=== PATIENT | male | born 1960 | race African-American/Black ===

== ENCOUNTER → 2016-06-15 | Outpatient (CLI) | payer OTHER ==
[~2016-06-15] MED LIST: ACETAMINOPHEN-1 EAC1 PO; ACIDOPHILUS1 EAC3 PO; ALDACTONE25 MG PO; ALEVE220 MG PO; AMOXICILLIN 50500 MG PO; ASPIR 8181 MG PO; ASPIRIN325 PO; ATORVASTATIN CA40 MG PO; BISACODYL SUPP10 MG RECTAL; CARAFATE 1 GM TA1 G1 PO; CARVEDILOL12.5 MG PO; CEFTIN500 MG PO; CELEBREX 200 M200 M1 PO; CELEXA20 MG PO; CEPACOL SORE T1 EAC7 PO; COLACE 100 MG100 MG PO; COLACE100 MG PO; COREG6.25 MG PO; CYCLOBENZAPRINE10 MG PO; DEX4 GLUCOSE4 GM PO; DUONEB 2.5-0.5 M3 ML INH; ENOXAPARIN40 MG/0.1 SUBQ; FERREX 150 PLU1 EAC1 PO; FERREX 150150 MG PO; FLOMAX0.4 MG PO; GABAPENTIN600 M1 PO; GLUCAGEN1 M2 IM; GLUCOSE GEL38 GM PO; HUMALOG100 UNIT/1 SUBQ; HYDROCODON-ACE1 EAC5 PO; HYDROCODONE-AP1 EAC6 PO; INDERAL 20 MG T20 M1 PO; JARDIANCE10 MG PO; KLOR-CON 1010 MEQ PO; LANTUS100 UNIT/M SUBQ; LASIX 20 MG TAB20 MG PO; LASIX 40 MG TAB40 M2 PO; LEVEMIR SUBQ; LEVEMIR100 UNIT/1 SUBQ; LISINOPRIL10 MG PO; LISINOPRIL2.5 MG PO; LOPRESSOR25 PO; LOTREL 10-40 M1 EACH PO; MELATONIN3 MG PO; MILK OF MA2400 MG/10 PO; MIRALAX17 GM PO; NAPROSYN500 MG PO; NEURONTIN 300300 M1 PO; NEURONTIN600 MG PO; NORCO 10-325 T1 EACH PO; NORCO 5-325 TA1 EACH PO; NORVASC10 MG; NOVOLOG100 UNIT/1 SUBQ; OXYCONTIN10 M1 PO; PACERONE 200 M200 M1 PO; PEPCID20 MG PO; PRILOSEC OTC20 MG PO; PRINIVIL10 MG PO; PRINIVIL20 MG PO; PROTONIX40 M1 PO; SENIOR TABS1 EACH PO; SLOW-MAG64 M1 PO; TYLENOL325 MG PO; VIAGRA100 MG PO; VITAMIN D1000 UNI1; VITAMIN D1000 UNI1 PO
--- NOTE | ~2016-06-15 | 2DMMODE ---
[facility] [place] [address] 2 D/M-MODE ECHOCARDIOGRAM Name: JOHN SHIELDS Room #: REG [facility]#: [id number] Admission: 06/15/16 Attend Phys: Chirag Frank Discharge: Date of : 56 Date of Service: 06/15/16 1313 Report #: [id number] THIS REPORT FOR: //name// Transthoracic Echocardiography Ordering physician: Chirag Cantu Referring physician: Chirag Cantu Online Marketer: Kay Muhammad Indications/History: Abbreviated echo for LV function. HX ISCM, CABG. BP: 119 / HR: 84bpm Height: 78in Weight: 229.5lb 84 Study data: Limited 2D, limited spectral Doppler, and color Doppler. Location: Echo laboratory. Routine. Image quality was adequate. The study was technically limited due to body habitus. The parasternal window was low. 2D measurements Normal Normal LVID ED 52.6mm 36-57 IVS ED 12mm 6-11 LVID ES 43.3mm 23-40 LVPW ED 12.2mm 6-11 LA volume index 16-28 AoRoot diam ED 21-37 LVOT diameter 18-23 Findings: Left ventricle: The cavity size was normal. Wall thickness was increased in a pattern of mild LVH. Systolic function was mildly to moderately reduced. The estimated ejection fraction was in the range of 40%. Right ventricle: The cavity size was normal. Systolic function was normal. Right atrium: The atrium was normal in size. Left atrium: The atrium was normal in size. Aortic valve: Poorly visualized. Mitral valve: Mildly calcified annulus. Mildly calcified leaflets . Doppler: There was no evidence for stenosis. Trivial regurgitation. [address] [address] 2 D/M-MODE ECHOCARDIOGRAM Name: JOHN SHIELDS Room #: REG M.R.#: [id number] Admission: 06/15/16 Attend Phys: Chirag Frank Discharge: Date of : 56 Date of Service: 06/15/16 1313 Report #: [id number] Tricuspid valve: Structurally normal valve. Doppler: There was no evidence for stenosis. Mild regurgitation. Regurgitant peak velocity: 250.5cm/s. Peak RV-RA gradient: 25mm Hg (S). Pulmonic valve: Structurally normal valve. Doppler: There was no evidence for stenosis. No regurgitation. Pericardium: There was no pericardial effusion. Pulmonary artery: Systolic pressure was estimated to be 30mm Hg. Systemic veins: Inferior vena cava: The vessel was normal in size; the respirophasic diameter changes were in the normal range (= 50%). Conclusions 1. Left ventricle: The cavity size was normal. Wall thickness was increased in a pattern of mild LVH. Systolic function was mildly to moderately reduced. The estimated ejection fraction was in the range of 40%. 2. Mitral valve: Mildly calcified annulus. Mildly calcified leaflets . Trivial regurgitation. 3. Tricuspid valve: Structurally normal valve. Mild regurgitation. 4. Pulmonary arteries: Systolic pressure was estimated to be 30mm Hg. <ELECTRONICALLY SIGNED> By: Chirag Cantu MD 06/15/16 1353 1313 1353 Chirag Cantu MD /liz
== END ==
LOC: CV 12:54
DX: I25.5 Ischemic cardiomyopathy (principal); Z95.1 Presence of aortocoronary bypass graft

== ENCOUNTER 2016-08-17 18:31 | Inpatient (IN) | payer OTHER ==
[~2016-08-17] VITALS: Ht 198.1 cm; Wt 90.4 kg
[2016-08-17] VITALS (10 sets, daily range): BP systolic 100–155; BP diastolic 53–127
--- NOTE | ~2016-08-17 | HC ---
[facility] [place] [address] CONSULTATION Name: JOHN SHIELDS Room #: 243-P ADM IN M.R.#: [id number] Admission: 08/17/16 Attend Phys: Buddy Garcia MD Discharge: Date of : 56 Report #: [id number] THIS REPORT FOR: //name// CC: LEXIE physician/PCP Marshall Raymond DATE OF SERVICE: 08/18/2016 HISTORY OF PRESENT ILLNESS: I have been asked to evaluate this 56-year-old male who is in the intensive care unit following admission to the Emergency Room for a large perirectal abscess on the left buttocks region. The patient also has a lengthy history of type 2 diabetes mellitus and is a known patient with diabetic ketoacidosis. He has reported by himself that he is noncompliant for his diabetes control. The left buttock abscess started as a pimple approximately 2 weeks ago according to the patient. It has progressed to become progressively larger involving the whole left buttocks to the base of the scrotum on the left. PAST MEDICAL HISTORY: Consistent with insulin-dependent diabetes, hypertension, lumbar disk problems, lengthy history of tobacco abuse, neuropathy of the lower extremities. PAST SURGICAL HISTORY: Coronary artery bypass grafting x 6 in 2015. Lumbar laminectomy in March 2016. MEDICATIONS: Lasix, insulin, carvedilol, lisinopril. Other medications, spironolactone, gabapentin, aspirin 81 mg daily, Lipitor 40 mg daily, melatonin. ALLERGIES: No known drug allergies. SOCIAL HISTORY: 40+ pack year history of cigarette smoking. REVIEW OF SYSTEMS: A 10-point review of systems is primarily related to the perirectal abscess with progressive pain, induration and swelling with spontaneous drainage from the area on the right side. This has demonstrated a spontaneous drainage from the left side. PHYSICAL EXAMINATION: GENERAL: The patient is in the intensive care unit, resting comfortably in bed, rolled to the right lateral decubitus position. He is alert, cooperative. LUNGS: Clear bilaterally. CARDIOVASCULAR: Regular rate and rhythm. [facility] [address] [place] [address] CONSULTATION Name: ALYSONJOHN ALYCIA Room #: 243-P ADM IN M.R.#: [id number] Admission: 08/17/16 Attend Phys: Buddy Garcia MD Discharge: Date of : 56 Report #: [id number] ABDOMEN: Soft, nontender. Perineal region demonstrates a left 9 position draining sinus tract with purulent drainage from the central portion, approximately 3-4 cm from the anal verge. The entire buttock superiorly as well as anteriorly toward the base of the scrotum is indurated with an at least 4 cm wide sinus tract, probably filled with purulent drainage. LABORATORY DATA: Remainder of the patient's laboratories were within normal limits. CT scan demonstrated the perirectal inflammatory changes. The patient's lactate was 2.3. White count is elevated. Remainder of his lab results were within normal limits. DIAGNOSTIC IMPRESSION: Large perirectal abscess, requires emergent incision and drainage with evacuation and packing today. Discussed the plan with the patient. He is in agreement to proceed. Thank you for allowing us to participate in his care. <ELECTRONICALLY SIGNED> By: Marshall Strange MD, FACS 08/19/16 1235 1519 Marshall Strange MD, FACS /nt
--- NOTE | ~2016-08-17 | H ---
[facility] [address] [address] HISTORY AND PHYSICAL Name: JOHN SHIELDS Room #: 315-P ADM IN M.R.#: [id number] Admission: 08/17/16 Attend Phys: Geovanna Latham Discharge: Date of : 56 Report #: [id number] THIS REPORT FOR: //name// CC: LEXIE physician/PCP Marshall Raymond DATE OF SERVICE: 08/17/2016 ATTENDING PHYSICIAN: Buddy Garcia M.D. CHIEF COMPLAINT: Generalized weakness and nausea and vomiting. HISTORY OF PRESENT ILLNESS: The patient is a 56-year-old -L[place] male with a history of diabetes. He came in with the above complaints. He was noted to be febrile on arrival. He says he was not aware he was having fevers at home. He feels that the weakness has been going on for about 2 weeks. He did have some associated nausea and vomiting. He says he has gotten so weak, he can barely stand up. He has been here before with DKA and noncompliance with his diabetic management. He reports that his blood sugars have been running high. He did notice some drainage from a sacral wound that started draining on its own about 3 days ago. He is very sleepy at this time, so I am not getting much information from him. He also reported some weight loss. He has not been having any diarrhea. He is denying any chest pain. He has not had any further nausea since arrival. He was noted to be septic and is currently being seen in ICU. PAST MEDICAL HISTORY: Diabetes type 2, DKA, coronary artery disease, hypertension, chronic back pain, peripheral neuropathy and COPD. PAST SURGICAL HISTORY: CABG x 6 vessels, lumbar laminectomy and ankle repair. ALLERGIES: None. HOME MEDICATIONS: Reviewed and per EMR. SOCIAL HISTORY: The patient is an ex-smoker, having quit 1 year ago after smoking for about 40 years. He lives alone. Denies any alcohol use. He is a . He reports that he has not been eating well since his in 2014, and he has been very depressed about this. FAMILY HISTORY: The patient is unable to provide any further information. REVIEW OF SYSTEMS: Unobtainable due to altered mental status. [address] [address] HISTORY AND PHYSICAL Name: JOHN SHIELDS ALYCIA Room #: [address] [place] [address] IN M.R.#: [id number] Admission: 08/17/16 Attend Phys: Geovanna Latham Discharge: Date of : 56 Report #: [id number] PHYSICAL EXAMINATION: GENERAL: The patient is a very lethargic male in no acute distress. VITAL SIGNS: Temperature is 38.2, heart rate 110, respirations 18, blood pressure is 119/85 and oxygen is 100% on room air. HEENT: PERRLA. Sclerae are nonicteric. Oral mucosa is pink and dry. NECK: Supple, no JVD noted. CARDIOVASCULAR: Normal S1 and S2. No murmurs, rubs or gallops. RESPIRATORY: Breath sounds are clear bilaterally. He is diminished in both bases. Breathing is nonlabored. ABDOMEN: Soft, nontender and nondistended with positive bowel sounds. VASCULAR: No edema noted. Pedal pulses are 2+. NEUROLOGIC: The patient is very lethargic. He is arousable by verbal and physical stimuli, but he opens his eyes briefly and answers questions with one-word response and then goes right back to sleep, and this had to be repeated multiple times during the whole assessment. He was able to follow a few simple commands and was able to hand squeeze and move his toes, which were moving equally. SKIN: He does have 2 buttock wounds that are open. The one on the right has some small amount of surrounding erythema with some small amount of purulent drainage. The one on the left has a moderate amount of purulent drainage, but the surrounding tissue is indurated and very tender, could not express any more pus from the wound itself manually. LABORATORY AND DIAGNOSTIC DATA: WBC is 28.1 with bands of 19%, hemoglobin 14.1 and platelets 406. Sodium 130, potassium is 4.2, BUN 51, creatinine 1.4, glucose is 350, anion gap is 12, lactate is 2.2. INR 1.1. LFTs are within normal limits. Troponins negative. Albumin is 2.1. Lipase is 35. ABG showed a pH of 7.48, pCO2 of 25.9, pO2 of 92 and bicarbonate of 18.9. UA showed 1+ ketones, negative leukocyte esterase and wbc's and 2+ glucose. CT of the abdomen and pelvic without contrast shows distal sigmoid colon and rectal davis demonstrate thickening and particularly the most distal rectum suggests some proctitis or inflammatory process. There is significant extraluminal and extraperitoneal gas seen within the perirectal soft tissue and perianal region extending into the proximal without organized abscess. There is probably some type of distal rectal bowel perforation. There is some distal pericolonic edema and stranding also seen along the distal sigmoid and rectal colon. There is some esophageal thickening suggesting esophagitis, and there is no intraperitoneal free air is seen. ASSESSMENT AND PLAN: 1. Sepsis: The patient has been admitted to ICU. He is on the sepsis protocol. We will continue with aggressive IV fluids and broad-spectrum antibiotics. Blood cultures have been obtained from the blood as well as from his wounds. This is likely from his left sacral wound. We will get a PICC line placed in the morning. [facility] [address] [place] [address] HISTORY AND PHYSICAL Name: JOHN SHIELDS Room #: 315-P ADM IN M.R.#: [id number] Admission: 08/17/16 Attend Phys: Geovanna Latham Discharge: Date of : 56 Report #: [id number] 2. Sacral wounds with possible abscess: Surgery is consulted and the patient is being kept n.p.o. He should also be seen by wound care. 3. Proctitis per CT, possibly related to these wounds versus a fistula formation. Surgery to see and continue antibiotics. 4. Diabetes type 2: This is uncontrolled. Check hemoglobin A1c. He is not in diabetic ketoacidosis. We will start insulin drip per sepsis protocol. 5. Altered mental status: This is due to toxic encephalopathy. We will continue to monitor as his infection is treated. He has no focal neurologic changes. 6. History of coronary artery disease with prior coronary artery bypass graft. The patient is able to deny any chest pain and troponin is negative. 7. Chronic obstructive pulmonary disease: This is stable and no signs of exacerbation. 8. Acute kidney injury: Last known creatinine was 1.0 in April, likely due to sepsis. We will continue with hydration and follow labs. 9. Deep venous thrombosis prophylaxis, place sequential compression devices. We will continue to follow the patient closely throughout the hospitalization and make changes based on clinical status. <ELECTRONICALLY SIGNED> By: OLIVER Miramontes 08/21/16 0658 0556 0752 OLIVER Miramontes /nt
--- NOTE | ~2016-08-17 | O ---
[facility] [place] [address] OPERATIVE REPORT Name: JOHN SHIELDS Room #: 243-P ADM IN M.R.#: [id number] Admission: 08/17/16 Attend Phys: Buddy Garcia MD Discharge: Date of : 56 Report #: [id number] THIS REPORT FOR: //name// CC: LEXIE physician/PCP Marshall Raymond DATE OF SERVICE: 08/18/2016 PREOPERATIVE DIAGNOSIS: Large perirectal abscess, left perirectal tissues from the 12-6 position. POSTOPERATIVE DIAGNOSIS: Large perirectal abscess, left perirectal tissues from the 12-6 position. OPERATIVE PROCEDURE: Incision and drainage of large perirectal abscess with irrigation and packing with iodoform gauze. SURGEON: Marshall Strange M.D. INDICATIONS: A 56-year-old male with reported 2-week history of progressive enlargement of an induration of the left buttock region. There has been a recent spontaneous drainage. The induration and mass has proceeded from the 12 position to the 6 position and the base of the scrotum. The induration is at least 3-6 cm in greatest dimension. In the central portion, approximately the 9 position, there is spontaneous drainage site with purulent exudate spontaneously coming from the abscess. OPERATIVE PROCEDURE: The patient had a thorough discussion of the procedure, benefits and risks. He gave informed consent to proceed. He was on antibiotics. He was brought to the operating room suite and had a satisfactory induction of general laryngeal mask anesthesia. He was then placed in the lithotomy position. Sterile paint with Betadine was performed, draping was completed, and an appropriate timeout was performed. Then, 0.5% plain Naropin was injected circumferentially lateral to the left buttock region. The spontaneous drainage site was at the 9 position by Goodsall's rule. Initially this was opened further, cultures were taken. Finger dissection was performed in an inferior manner toward the base of the scrotum where the indurated tract and purulent drainage was. A second counter incision was performed at the 7 position. This was thoroughly opened and evacuated and irrigated. A third incision was performed at approximately the 11 position to further delineate and free up the tract and purulent material in the subcutaneous tissue. Copious irrigation through all 3 tracts was performed. One inch iodoform gauze was then packed into all 3 sites, 2 separate packings were utilized. The one set of [facility] [address] [place] [address] OPERATIVE REPORT Name: JOHN SHIELDS Room #: 243-P [facility] IN ..#: [id number] Admission: 08/17/16 Attend Phys: Buddy Garcia MD Discharge: Date of : 56 Report #: [id number] packing was brought in from the 11 position and packed into the 9 position; the 7 position packing was independent and separate. ESTIMATED BLOOD LOSS: Less than 25 mL. The patient had sterile dressings applied and returned to the recovery room in stable and satisfactory condition. <ELECTRONICALLY SIGNED> By: Marshall Strange MD, FACS 08/19/16 1235 1523 1918 Marshall Strange MD, FACS /nt
--- NOTE | ~2016-08-17 | HC ---
[facility] [place] [address] CONSULTATION Name: JOHN SHIELDS Room #: 243- ADM IN M.R.#: [id number] Admission: 08/17/16 Attend Phys: Buddy Garcia MD Discharge: Date of : 56 Report #: [id number] THIS REPORT FOR: //name// CC: [facility] physician/PCP Marshall Sesay Doc Ldsabinakelley aMrkalessandra DATE OF SERVICE: 08/18/2016 INFECTIOUS DISEASE CONSULTATION ATTENDING PHYSICIAN: Buddy Garcia M.D. CONSULTING PHYSICIAN: Adan Mattson M.D. REASON FOR EVALUATION: Severe sepsis with necrotizing perineal infection, the patient with diabetes mellitus. HISTORY OF PRESENT ILLNESS: Chart reviewed, the patient examined. This is a 56-year-old male with long-standing diabetes, now insulin requiring, type 2, who noted a, what he describes as, pimple on his buttock and he popped it. This was roughly 2 weeks ago. Since that time, he has had increasing pain associated with it. Did have elevated blood sugars. Generally, he has progressed to the point where he has significant pain, severe weakness. It is unclear whether he has had fevers or chills. No significant pulmonary-related complaints at this point. Evaluation with CT abdomen and pelvis showed distal sigmoid colon and rectal wall thickening consistent with inflammatory process; significant extraluminal, extraperitoneal gas in the perirectal soft tissue and perineal region without a clear abscess. There was question of bowel perforation. He had been found to have an elevated lactic acid of 2.2. He was admitted, resuscitated. Overall, he feels better, although he has persistent elevation of lactic acid as well as elevation of procalcitonin. He did undergo culture, which is pending. Gram stain did show polymicrobial etiology, however. He was started on broad-spectrum therapy consisting of vancomycin as well as piperacillin and tazobactam. He is generally alert, in moderate distress. ALLERGIES: Listed as none. MEDICATIONS: Include vancomycin, famotidine, piperacillin, and tazobactam. Currently, he is not on pressors. He is on insulin. PAST MEDICAL HISTORY: Includes diabetes mellitus type 2, insulin requiring; hypertension; chronic back pain; he has known coronary artery disease and peripheral neuropathy. [address] [address] CONSULTATION Name: JOHN SHIELDS Room #: 243-P [facility] IN .R.#: [id number] Admission: 08/17/16 Attend Phys: Buddy Garcia MD Discharge: Date of : 56 Report #: [id number] SOCIAL HISTORY: No illicit drug use. Former smoker. No ethanol. FAMILY HISTORY: Noncontributory. REVIEW OF SYSTEMS: As above. PHYSICAL EXAMINATION: GENERAL: Appears somewhat chronically ill, undernourished. He is pleasant, appropriate, in mild to moderate distress. He is generally lucid. VITAL SIGNS: Temperature was recently 98.2, pulse 103, respirations 20, and blood pressure 143/82. SKIN: Warm, dry. No rashes. HEENT: Otherwise, unremarkable. NECK: Supple. LUNGS: Diminished; otherwise, clear breath sounds. HEART: Regular. ABDOMEN: Mildly distended and soft. There are no peritoneal signs. LABORATORY DATA: Gram stain showed polymicrobial etiology including gram-negative rods, gram-positive rods, and gram-positive cocci. Procalcitonin was elevated at 4.8. Lactic acid of 2.9. Electrolytes: Sodium 139, potassium 3.3, chloride 105, bicarbonate is 23 and BUN and creatinine 43 and 1.5. White count of 22.7, H and H 14.2 and 43.4, and platelets of 356,000. Electrolytes: ____. Albumin 1.6, total protein of 7.1. CT as noted above. ABGs: pH of 7.482, PCO2 of 25.9, PO2 of 92, was on room air. Chest x-ray, no acute process. ASSESSMENT AND PLAN: Perineal necrotizing infection perhaps as a result of distal colonic or rectal perforation with ____ abscess subsequently drained versus outside-in progression. We will await the results of the culture and that should help further clarify ____ surgery to evaluate and likely will need some surgical intervention. He appears to be ill, although not overtly toxic at this point, so only risk for related complications. We will add incentive spirometry and try to optimize his nutritional status. We will follow. <ELECTRONICALLY SIGNED> By: Lázaro Roach MD 08/18/16 1728 0713 0804 Lázaro Roach MD /nt
--- NOTE | ~2016-08-17 | EKG ---
[address] [address] ELECTROCARDIOGRAM REPORT Name: JOHN SHIELDS Room #: 243-P ADM IN M.R.#: [id number] Admission: 08/17/16 Attend Phys: Buddy Garcia MD Discharge: Date of : 56 Report #: [id number] THIS REPORT FOR: //name// [facility] ED Test Date: 2016-08-17 Test Time: 18:43:11 Pat Name: JOHN SHIELDS Department: Room: [facility] Gender: M Senior Operations Analyst: MZOOK : 1960 Requested By: Jani Alamo Order Number: [id number] MD: Ryland Higginbotham Measurements Intervals [place] Rate: 107 P: 75 MD: 147 QRS: 33 QRSD: 88 T: 223 QT: 331 QTc: 442 Interpretive Statements Sinus tachycardia Probable left atrial enlargement Nonspecific ST segment changes Compared to ECG 05/08/2016 04:11:31 Atrial flutter no longer present Electronically Signed On 08-18-2016 12:32:19 CDT by Ryland Higginbotham [email or web address] <ELECTRONICALLY SIGNED> By: Ryland Higginbotham MD 08/18/16 1232 1843 1843 Ryland Higginbotham MD /HENRIQUE
--- NOTE | ~2016-08-17 | HC ---
[facility] [place] [address] CONSULTATION Name: JOHN SHIELDS Room #: 315-P ADM IN M.R.#: [id number] Admission: 08/17/16 Attend Phys: Geovanna Latham Discharge: Date of : 56 Report #: [id number] THIS REPORT FOR: //name// CC: LEXIE physician/PCP Marshall Sesay Doc Ldsabinakelley Markalessandra DATE OF SERVICE: 08/19/2016 REASON FOR CONSULTATION: Status post incision and drainage of left perirectal abscess by Dr. Marshall Strange. HISTORY: The patient is a 56-year-old gentleman presenting himself to the Emergency Room at [facility] with leukocytosis and evidence of left-sided perirectal abscess. He was taken to the operating room yesterday by Dr. Marshall Strange, who performed incision and drainage of the left-sided perirectal abscess. Wound care was consulted for postoperative wound care. PAST MEDICAL HISTORY: 1. Chronic back pain. 2. Uncontrolled diabetes mellitus. 3. History of non-ST elevated myocardial infarction. 4. History of congestive heart failure. 5. History of pulmonary edema. 6. History of diabetic ketoacidosis. 7. History of acute kidney injury. PAST SURGICAL HISTORY: 1. Lumbosacral spondylosis with radiculopathy status post lumbar surgery. 2. History of coronary artery bypass grafting x 6. ALLERGIES: No known drug allergies. HOME MEDICATIONS: Include acetaminophen, hydrocodone, Pepcid, Humalog insulin, ondansetron. He has been placed on piperacillin and vancomycin. At home, he is also on aspirin, atorvastatin, Celexa, Dulcolax, Lasix, Neurontin, lisinopril, melatonin, Prilosec, MiraLax and Flomax. LABORATORY DATA: White blood cell count 20,800, hematocrit 35.3. PHYSICAL EXAMINATION: GENERAL: Shows a healthy appearing tall, elderly appearing 56-year-old -[place] gentleman. [address] [address] CONSULTATION Name: ALYSONJOHN ALYCIA Room #: 315[facility] IN M.R.#: [id number] Admission: 08/17/16 Attend Phys: Geovanna Latham Discharge: Date of : 56 Report #: [id number] VITAL SIGNS: Temperature 36.7, pulse 84, respirations 14, blood pressure 142/72. HEENT: Mucous membranes are moist. NECK: Supple. Breath sounds are decreased bilaterally, status post median sternotomy scar. EXTREMITIES: Normal. Examination of the patient's back shows a healed lumbar incision. RECTAL: Examination of the left perirectal area shows two linear incision and drainage sites on the left buttock to the left of the anus. Iodoform pack was removed. The wound appears relatively clean with a minimal amount of drainage. It appears that the abscess has been completely drained. Wound was repacked with half inch iodoform gauze. IMPRESSION: 1. Diabetes mellitus type 2. 2. Left-sided perirectal abscess with leukocytosis and sepsis. 3. Surgically drained left perirectal abscess, appears completely drained. PLAN: Check wound cultures. Continue IV antibiotics. Change wound packing daily with half inch iodoform gauze packing. Wound care team will help afterwards with care of the wound. By: [id number] Eben Wills MD /nt
[2016-08-17 19:16] LABS: HEMATOCRIT 42.8 % (42.0-52.0); HEMOGLOBIN 14.1 gm/dL (14.0-18.0); MCV 78.8 fL (80.0-100.0); PLATELET COUNT 406 thou/uL (150-400); RBC 5.43 mil/uL (4.50-6.00); RDW 15.9 % (10.5-14.5); WBC 28.1 thou/uL (4.0-11.0)
[2016-08-17 19:18] LABS: MANUAL DIFF YES
[2016-08-17 19:45] LABS: ABSOLUTE NEUTROPHILS 24.7 thou/uL (1.4-8.2); METAMYELOCYTES 1 %; TOTAL CELL COUNT 100
[2016-08-17 20:13] LABS: ABG SAMPLE TYPE ARTERIAL; STICK SITE R.RADIAL
[2016-08-17 20:14] LABS: BE(vivo) -2.8 mmol/L (-2 to +3); HCO3 18.9 mmol/L (22.0-26.0); LACTATE 2.32 mmol/L (0.5-2.0); O2(CT) 19.9 mL/dL (15.0-23.0); O2Hb 96.6 % (92.0-98.0); PCO2 25.9 mmHg (35.0-45.0); PO2 92 mmHg (80.0-100.0); pH 7.482 (7.360-7.450); tCO2 19.7 mmol/L (24.0-30.0)
[2016-08-17 20:16] LABS: FIO2 21 %
[2016-08-17 20:17] LABS: sO2 97.6 % (92.0-98.0)
[2016-08-17 20:17] LABS: URINE BILIRUBIN 1+ (Negative); URINE BLOOD TRACE (Negative); URINE COLOR YELLOW; URINE GLUCOSE-RANDOM* 2+ (Negative); URINE KETONES 1+ (Negative); URINE NITRITE NEGATIVE (Negative); URINE PROTEIN (DIPSTICK) 1+ (Negative); URINE SPECIFIC GRAVITY 1.015 (1.003-1.035); URINE UROBILINOGEN 0.2 E.U./dl (0.2-1.0)
[2016-08-17 20:18] LABS: ICTOTEST (BILI CONFIRMATORY) Positive (Negative)
[2016-08-17 20:27] LABS: HYALINE CASTS 0-3 Few /LPF (None Seen)
[2016-08-17 20:28] LABS: BACTERIA None Seen /HPF (None Seen); CRYSTALS None Seen /LPF (None Seen); SQUAMOUS 0-3 Few /LPF (0-3); URINE RBC None Seen /HPF (0-2); URINE WBC None Seen /HPF (0-5)
[2016-08-17 20:37] LABS: ANION GAP 12 mmol/L (7-16); BUN 51 mg/dL (7-18); CHLORIDE 97 mmol/L (98-107); CO2 21 mmol/L (21-32); CREATININE 1.4 mg/dL (0.6-1.3); GLUCOSE 350 mg/dL (70-99); POTASSIUM 4.2 mmol/L (3.5-5.1); SODIUM 130 mmol/L (136-145)
[2016-08-17 20:44] LABS: ALKALINE PHOSPHATASE 132 U/L (46-116); DIRECT BILIRUBIN 0.2 mg/dL (<0.1-0.3); SGOT 14 U/L (15-37); SGPT 7 U/L (30-65); TOTAL BILIRUBIN 0.6 mg/dL (<0.1-1.0); TOTAL PROTEIN 7.3 g/dL (6.4-8.2); TROPONIN-I < 0.04 ng/mL (<0.04-0.07)
[2016-08-17 20:54] LABS: APTT 33.2 Seconds (24.5-32.8); INR 1.1; PROTIME 11.8 Seconds (9.3-11.4)
[2016-08-17 21:03] LABS: ALBUMIN 2.1 g/dL (3.4-5.0)
[2016-08-17] MEDS ORDERED: ALDACTONE25 MG PO (21:29)
[2016-08-17] MEDS ORDERED: NOVOLOG100 UNIT/1 SUBQ (21:29)
[2016-08-17] MEDS ORDERED: LANTUS SUBQ (21:29)
[2016-08-17] MEDS ORDERED: LISINOPRIL10 MG PO (21:29)
[2016-08-17] MEDS ORDERED: PACERONE 200 M200 M1 PO (21:30)
[2016-08-17] MEDS ORDERED: LISINOPRIL30 MG PO (21:30)
[2016-08-17 23:55] LABS: CALCIUM 8.6 mg/dL (8.5-10.1); CREATININE 1.3 mg/dL (0.6-1.3); POTASSIUM 4.2 mmol/L (3.5-5.1)
[2016-08-18] VITALS (69 sets, daily range): BP systolic 96–177; BP diastolic 42–100
[2016-08-18 00:03] LABS: APTT 35.6 Seconds (24.5-32.8); FIBRINOGEN 516.4 mg/dL (210-360); INR 1.2; PROTIME 12.1 Seconds (9.3-11.4)
[2016-08-18 02:00] LABS: HEMATOCRIT 43.4 % (42.0-52.0); HEMOGLOBIN 14.2 gm/dL (14.0-18.0); MCH 26.2 pg (26.0-34.0); MCHC 32.7 g/dL (28.0-37.0); PLATELET COUNT 356 thou/uL (150-400); RBC 5.43 mil/uL (4.50-6.00); RDW 15.7 % (10.5-14.5); WBC 22.7 thou/uL (4.0-11.0)
[2016-08-18 02:04] LABS: MANUAL DIFF YES
[2016-08-18 02:16] LABS: ALBUMIN 1.6 g/dL (3.4-5.0); CALCIUM 8.8 mg/dL (8.5-10.1); CREATININE 1.4 mg/dL (0.6-1.3); POTASSIUM 3.5 mmol/L (3.5-5.1); TOTAL BILIRUBIN 0.6 mg/dL (<0.1-1.0); TOTAL PROTEIN 7.1 g/dL (6.4-8.2)
[2016-08-18 02:38] LABS: ABSOLUTE NEUTROPHILS 19.5 thou/uL (1.4-8.2); BURR CELLS 2+; TOTAL CELL COUNT 100; TOXIC GRANULATION 2+
[2016-08-18 02:39] LABS: ANISOCYTOSIS 1+; POLYCHROMASIA 1+
[2016-08-18 05:27] LABS: CALCIUM 8.6 mg/dL (8.5-10.1); CREATININE 1.5 mg/dL (0.6-1.3); POTASSIUM 3.3 mmol/L (3.5-5.1)
[2016-08-18 05:33] LABS: INR 1.1; PROTIME 11.9 Seconds (9.3-11.4)
[2016-08-19] VITALS (27 sets, daily range): BP systolic 93–147; BP diastolic 48–87
[2016-08-19 05:07] LABS: ABSOLUTE NEUTROPHILS 18.3 thou/uL (1.4-8.2); BASOPHILS 0.2 % (0.0-2.0); EOSINOPHILS 0.4 % (0.0-3.0); HEMATOCRIT 35.3 % (42.0-52.0); LYMPHOCYTES 3.9 % (24.0-44.0); MCH 25.9 pg (26.0-34.0); MCHC 32.8 g/dL (28.0-37.0); MCV 78.9 fL (80.0-100.0); MONOCYTES 7.7 % (1.0-8.0); PLATELET COUNT 323 thou/uL (150-400); POLYS 87.8 % (36.0-66.0); RBC 4.47 mil/uL (4.50-6.00); RDW 15.9 % (10.5-14.5); WBC 20.8 thou/uL (4.0-11.0)
[2016-08-19 05:11] LABS: HEMOGLOBIN 11.67 gm/dL (14.0-18.0)
[2016-08-19 05:12] LABS: MANUAL DIFF NO
[2016-08-19 05:20] LABS: CREATININE 1.3 mg/dL (0.6-1.3); POTASSIUM 3.5 mmol/L (3.5-5.1)
[2016-08-20 04:00] VITALS: BP 126/67
[2016-08-20 07:37] VITALS: BP 114/58
[2016-08-20] MEDS ORDERED: ZOSYN 3.3753.375 GM IV (10:11)
[2016-08-20] MEDS ORDERED: HUMALOG100 UNIT/1 SUBQ (10:12)
[2016-08-20 14:48] VITALS: BP 121/61
[2016-08-20 19:44] VITALS: BP 141/66
[2016-08-21 03:58] VITALS: BP 147/73
[2016-08-21 08:46] VITALS: BP 161/60
[2016-08-21 08:53] VITALS: BP 161/60
[2016-08-21] MEDS ORDERED: LORTAB 7.5-3251 EACH PO (09:18)
[2016-08-21] MEDS ORDERED: UNASYN 3 GM VIAL3 G1 IV (09:18)
== END 2016-08-21 13:31 | DRG 853 ==
LOC: ER 18:31 → EROBS 20:53 → ICU 20:53 → 3N 20:53 → ICU 21:59 → 3N 08-19 15:51
PROVIDERS: Nurse Practitioner; Nurse Practitioner Acute Care; Surgery
PROC: 02HV33Z Insertion of Infusion Device into Superior Vena Cava, Percutaneous Approach (ICD-10-PCS; principal; 2016-08-18)
PROC: 0D9P0ZX Drainage of Rectum, Open Approach, Diagnostic (ICD-10-PCS; principal; 2016-08-18)
DX: A41.51 Sepsis due to Escherichia coli [E. coli] (principal); G92 Toxic encephalopathy; E43 Unspecified severe protein-calorie malnutrition; K61.1 Rectal abscess; N17.9 Acute kidney failure, unspecified; E11.65 Type 2 diabetes mellitus with hyperglycemia; G89.18 Other acute postprocedural pain; I25.10 Atherosclerotic heart disease of native coronary artery without angina pectoris; K62.89 Other specified diseases of anus and rectum; E11.22 Type 2 diabetes mellitus with diabetic chronic kidney disease; N18.9 Chronic kidney disease, unspecified; E11.40 Type 2 diabetes mellitus with diabetic neuropathy, unspecified; J44.9 Chronic obstructive pulmonary disease, unspecified; I50.9 Heart failure, unspecified; I25.2 Old myocardial infarction; Z87.891 Personal history of nicotine dependence; Z79.4 Long term (current) use of insulin; Z79.82 Long term (current) use of aspirin; Z79.899 Other long term (current) drug therapy; Z95.1 Presence of aortocoronary bypass graft; Z68.23 Body mass index [BMI] 23.0-23.9, adult
CPT/HCPCS: 10078; 10096; 27000; 50010; 50101; 50386; 62110; 62900; 70005

== ENCOUNTER → 2016-09-05 | Outpatient (CLI) | payer OTHER ==
[~2016-09-05] MED LIST changes: +LANTUS SUBQ; +LISINOPRIL30 MG PO; +LORTAB 7.5-3251 EACH PO; +UNASYN 3 GM VIAL3 G1 IV; +ZOSYN 3.3753.375 GM IV
== END ==
LOC: RAD 09-04 14:58
DX: K61.1 Rectal abscess (principal); L02.215 Cutaneous abscess of perineum

== ENCOUNTER 2016-09-06 10:52 | Inpatient (IN) | payer OTHER ==
[~2016-09-06] VITALS: Ht 198.1 cm; Wt 108.9 kg
--- NOTE | ~2016-09-06 | HC ---
[facility] [place] [address] CONSULTATION Name: JOHN SHIELDS Room #: 457-P ADM IN M.R.#: [id number] Admission: 09/06/16 Attend Phys: Geovanna Latham Discharge: Date of : 56 Report #: [id number] THIS REPORT FOR: //name// CC: LEXIE physician/PCP Geovanna Latham DATE OF SERVICE: 09/09/2016 CONSULTATION: Infectious diseases. HISTORY OF PRESENT ILLNESS: The patient is a 56-year-old black gentleman admitted from his halfway, September 06, complaining of 3-day history of increased shortness of breath. This was exacerbated with lying down and improved when sitting up. He had his saturation measures in the 80s on room air. The patient noted that he had been gaining weight about 30 pounds in 3 weeks and was having swelling. The patient was admitted with exacerbation of heart failure. Blood cultures were obtained. Infectious disease consultation was requested when 1 out of 2 blood cultures grew a gram-negative organism. The patient is approximately 3 weeks status post incision and drainage of a horseshoe abscess in the rectal area. The patient was admitted on August 17 through August 20 with rectal pain and E. coli sepsis. The patient was in acute rehab after this procedure. PAST MEDICAL HISTORY: Past history is significant for diabetes, hypertension, myocardial infarction, coronary artery disease, low back pain and COPD. PAST SURGICAL HISTORY: Includes laminectomies, coronary artery bypass grafting and ankle surgery. FAMILY HISTORY: Noncontributory. SOCIAL HISTORY: The patient had been for 2 years. He admits he has not been taking such good care of himself since his . 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 He did smoke cigarettes, but quit about one year ago. He denies use of alcohol or drugs. He currently lives by himself and in plans to go home after completing rehab. REVIEW OF SYSTEMS: GENERAL: The patient has not been complaining of fevers, chills or sweats. He has been having weakness and malaise. His dyspnea is significantly improved with 3 days in the hospital. He is not complaining of any headache, sinus congestion, sore throat or trouble swallowing. No cough, chest pain or angina. No syncope or arrhythmia. No pleurisy. The patient denies nausea, vomiting, diarrhea or constipation. He is having regular bowel movements. They are not particularly painful. He still has some local tenderness in the area of his [facility] [address] [place] [address] CONSULTATION Name: JOHN SHIELDS Room #: 457-P [facility] IN ..#: [id number] Admission: 09/06/16 Attend Phys: Geovanna Latham Discharge: Date of : 56 Report #: [id number] recent surgery. GENITOURINARY: No complaints. EXTREMITIES: No complaints. PHYSICAL EXAMINATION: GENERAL: On examination, the patient appears his stated age. Alert, oriented, comfortable, not in any distress. VITAL SIGNS: Normal. The patient is afebrile. ENT: Unremarkable. The patient is awake, alert, and able to give a cogent history. HEART: Heart sounds normal. Regular rate and rhythm. No murmur. LUNGS: Clear. ABDOMEN: Belly obese, soft, not tender. RECTAL: The perirectal area was examined. There is an open surgical wound at about 9 o'clock. It measures about 0.5 x 2 cm. I did not probe the depth. The granulation tissue visible to observation appears clean and beefy red. There is a small wound, which I think was the counter drain, at about 7 o' clock. There is minimal serous drainage. There is mild induration. The patient is dark colored, so I really could not appreciate erythema. The area was mildly tender to palpitation. EXTREMITIES: The distal extremities were unremarkable. LABORATORY DATA: White count is 7.3, hemoglobin 9.8 and platelet 458,000. Electrolytes, BUN and creatinine were normal. The blood culture showed Klebsiella sensitive to all antibiotics except for ampicillin in 1 out of 2 of the initial blood cultures. An echocardiogram showed left ventricular hypertrophy with an ejection fraction of 40%. CT angiogram was negative for clot, did suggest fluid overload. The chest x-ray had atelectasis or infiltrates in both bases. IMPRESSION: Klebsiella bacteremia in a patient 3 weeks status post rectal abscess surgery. Based on the culture, I think we can safely change from Zosyn to Rocephin. This is a more focused antibiotic, less expensive and only required once a day administration. I will ask Dr. Strange, the surgeon, to come back in re-examine the patient. I suspect that the perirectal area is probably the source of the gram-negative bacteremia. We, unfortunately, did not get a urine on admission, but the patient had no urinary symptoms. I did request a swab of the wound to see if this also has the Klebsiella or the patient has been on broad spectrum antibiotics with Zosyn and meropenem for the last 3 days. At some point, it may be worthwhile to have marine engineer evaluate the patient regarding his episode of heart failure. For now, we will continue the patient on Rocephin and await Dr. Strange's reevaluation of the surgical wound. Dr. Mattson will return tomorrow for [facility] [address] [place] [address] CONSULTATION Name: JOHN SHIELDS Room #: 457-P ADM IN M.R.#: [id number] Admission: 09/06/16 Attend Phys: Geovanna Latham Discharge: Date of : 56 Report #: [id number] infectious disease followup. I appreciate the opportunity to offer input in the care of the patient. Thank you for requesting infectious disease input. By: [id number] David Hoover MD /rmoero
--- NOTE | ~2016-09-06 | H ---
[facility] [place] [address] HISTORY AND PHYSICAL Name: JOHN SHIELDS Room #: 457-P ADM IN M.R.#: [id number] Admission: 09/06/16 Attend Phys: Geovanna Latham Discharge: Date of : 56 Report #: [id number] THIS REPORT FOR: //name// CC: LEXIE physician/PCP Geovanna Latham DATE OF SERVICE: 09/07/2016 This is a wound care history and physical on an established patient but new hospital visit. DATE OF SERVICE: 09/07/2016. PERSONAL PHYSICIAN: CHIEF COMPLAINT: Gluteal wounds. HISTORY OF PRESENT ILLNESS: This is a 56-year-old black male who is currently admitted for shortness of breath, and workup is undergoing. We will follow the patient in the past for gluteal abscesses that has been drained. The patient had been using morphine and Silvadene at home. The patient states the abscesses actually, he feels, have been doing fairly well. The patient states that it was not until recently he started having this shortness of breath. We have been asked to assist in the care of the wound while he is here. PAST MEDICAL HISTORY: Type 2 diabetes, coronary artery disease, hypertension, peripheral neuropathy, COPD, coronary artery bypass grafting. CURRENT MEDICATIONS: Multiple inpatient medication list. DRUG ALLERGIES: None. SOCIAL HISTORY: The patient has a history of smoking, quit approximately one year ago. Currently, he is in rehab at [facility]. Denies alcohol use. FAMILY HISTORY: Not pertinent to current medical condition. REVIEW OF SYSTEMS: CONSTITUTIONAL: The patient denies fevers or chills. EYES: No complaints. ENT: No complaints. CARDIAC: The patient denies chest pain, palpitations, peripheral edema. RESPIRATORY: The patient has shortness of breath, but denies actual wheezes, but does have associated cough which is slight. GASTROINTESTINAL: No nausea, vomiting, diarrhea. GENITOURINARY: The patient denies urgency or frequency. [facility] [address] [place] [address] HISTORY AND PHYSICAL Name: JOHN SHIELDS Room #: [address] [place] [address] IN ..#: [id number] Admission: 09/06/16 Attend Phys: Geovanna Latham Discharge: Date of : 56 Report #: [id number] MUSCULOSKELETAL: No complaints. SKIN: There are bilateral gluteal perianal wounds. PHYSICAL EXAMINATION: VITAL SIGNS: Stable. The patient is afebrile. GENERAL: This is an alert and oriented x 3, pleasant black male who is in no acute distress. HEENT: Normocephalic, atraumatic. Mucous membranes are moist. Pupils are round. Sclerae are white. LUNGS: Nonlabored respirations. HEART: ABDOMEN: Soft, nontender. SKIN: Evaluation of the gluteal region reveals 3 discrete wounds on the left perianal and gluteal regions. The most inferior one has a depth of approximately 10 cm. Otherwise, clean and granulating without signs of induration, fluctuance or abscess or cellulitis. EXTREMITIES: The patient moves all extremities without difficulty. NEUROLOGIC: Cranial nerves 2-12 grossly intact. Motor and sensory are grossly intact. LABORATORY VALUES: White count 6.5, hemoglobin 8.9. Albumin is markedly low at 1.9. IMPRESSION: 1. Multiple perianal/gluteal wounds, status post incision and drainage, overall stable. 2. Acute dyspnea. Workup undergoing. 3. Severe protein-calorie malnutrition. 4. Diabetes mellitus. PLAN: At this time, we will pack the most inferior wound with morphine, Silvadene, packing gauze twice daily. Otherwise, put morphine, Silvadene cream over the 2 other superficial wounds. We will make sure we maximize the patient's oral protein supplementation for healing, and the patient's workup for his dyspnea is undergoing. I appreciate the ability to consult. By: [id number] Donnell Flores MD /nt
--- NOTE | ~2016-09-06 | EKG ---
[place] [address] [facility] [place] [address] ELECTROCARDIOGRAM REPORT Name: JOHN SHIELDS Room #: 457-P ADM IN M.R.#: [id number] Admission: 09/06/16 Attend Phys: Geovanna Latham Discharge: Date of : 56 Report #: [id number] THIS REPORT FOR: //name// [facility] ED Test Date: 2016-09-06 Test Time: 11:30:33 Pat Name: JOHN SHIELDS Department: Room: [facility] Gender: M Well Puller: Sigifredo BLOUNT : 1960 Requested By: Vaibhav Davenport Order Number: [id number] MD: Vic Parmar Measurements Intervals [place] Rate: 95 P: 54 GA: 163 QRS: 14 QRSD: 84 T: 126 QT: 370 QTc: 465 Interpretive Statements Sinus rhythm Left atrial enlargement Low voltage, extremity leads Nonspecific T abnormalities Compared to ECG 08/17/2016 18:43:11 Sinus tachycardia no longer present Electronically Signed On 09-07-2016 8:36:43 CDT by Vic Parmar [email or web address] <ELECTRONICALLY SIGNED> By: Vic Parmar MD, [facility] 09/07/16 0836 1130 1130 Vic Parmar MD, [facility] /EPI
[2016-09-06 10:52] VITALS: BP 153/79
[2016-09-06 11:21] LABS: ABSOLUTE NEUTROPHILS 3.7 thou/uL (1.4-8.2); BASOPHILS 2.1 % (0.0-2.0); HEMATOCRIT 27.5 % (42.0-52.0); HEMOGLOBIN 8.9 gm/dL (14.0-18.0); LYMPHOCYTES 22.5 % (24.0-44.0); MCH 26.4 pg (26.0-34.0); MCHC 32.4 g/dL (28.0-37.0); MCV 81.5 fL (80.0-100.0); MONOCYTES 11.7 % (1.0-8.0); PLATELET COUNT 403 thou/uL (150-400); POLYS 56.7 % (36.0-66.0); RBC 3.37 mil/uL (4.50-6.00); RDW 17.4 % (10.5-14.5); WBC 6.5 thou/uL (4.0-11.0)
[2016-09-06 11:23] LABS: ABG SAMPLE TYPE ARTERIAL; BE(vivo) 2.8 mmol/L (-2 to +3); HCO3 26.2 mmol/L (22.0-26.0); LACTATE 1.34 mmol/L (0.5-2.0); O2(CT) 13.5 mL/dL (15.0-23.0); O2Hb 88.8 % (92.0-98.0); PCO2 35.6 mmHg (35.0-45.0); pH 7.484 (7.360-7.450); tCO2 27.2 mmol/L (24.0-30.0)
[2016-09-06 11:24] LABS: PO2 55.1 mmHg (80.0-100.0); STICK SITE L.BRACHIAL
[2016-09-06 11:32] LABS: ANION GAP 6 mmol/L (7-16); BUN 13 mg/dL (7-18); CALCIUM 6.3 mg/dL (8.5-10.1); CHLORIDE 111 mmol/L (98-107); CO2 24 mmol/L (21-32); CREATININE 0.6 mg/dL (0.7-1.3); GLUCOSE 99 mg/dL (74-106); MANUAL DIFF NO; POTASSIUM 3.4 mmol/L (3.5-5.1); SODIUM 141 mmol/L (136-145)
[2016-09-06 11:44] LABS: ALBUMIN 1.4 g/dL (3.4-5.0); ALKALINE PHOSPHATASE 108 U/L (46-116); NT-PRO BRAIN NAT PEPTIDE 3874 pg/mL (<300); SGOT 23 U/L (15-37); SGPT 19 U/L (30-65); TOTAL BILIRUBIN 0.2 mg/dL (<0.1-1.0); TOTAL PROTEIN 5.3 g/dL (6.4-8.2); TROPONIN-I < 0.04 ng/mL (<0.04-0.07)
[2016-09-06 12:34] LABS: INR 1.1; PROTIME 11.8 Seconds (9.3-11.4)
[2016-09-06 14:06] VITALS: BP 153/82
[2016-09-06 14:30] VITALS: BP 151/100
[2016-09-06 20:00] VITALS: BP 133/69
[2016-09-06 23:34] VITALS: BP 103/57
[2016-09-07 04:00] VITALS: BP 123/69
[2016-09-07 06:04] LABS: CALCIUM 7.9 mg/dL (8.5-10.1); MAGNESIUM 1.7 mg/dL (1.8-2.4); POTASSIUM 3.9 mmol/L (3.5-5.1)
[2016-09-07 08:00] VITALS: BP 153/76
[2016-09-07 11:54] VITALS: BP 136/70
[2016-09-07 15:11] VITALS: BP 133/76
[2016-09-07 19:29] VITALS: BP 160/79
[2016-09-08 03:44] VITALS: BP 141/84
[2016-09-08 06:01] LABS: ALBUMIN 1.8 g/dL (3.4-5.0); CALCIUM 7.9 mg/dL (8.5-10.1); CREATININE 0.9 mg/dL (0.7-1.3); PHOSPHORUS 3.5 mg/dL (2.5-4.9); POTASSIUM 3.9 mmol/L (3.5-5.1)
[2016-09-08 08:00] VITALS: BP 180/86
[2016-09-08 12:20] VITALS: BP 143/76
[2016-09-08 16:50] VITALS: BP 174/104
[2016-09-08 18:53] VITALS: BP 151/72
[2016-09-09 03:35] VITALS: BP 158/101
[2016-09-09 04:21] VITALS: BP 160/91
[2016-09-09 05:40] LABS: HEMATOCRIT 30.6 % (42.0-52.0); HEMOGLOBIN 9.8 gm/dL (14.0-18.0); MCH 25.9 pg (26.0-34.0); MCV 80.8 fL (80.0-100.0); RBC 3.79 mil/uL (4.50-6.00); RDW 17.3 % (10.5-14.5); WBC 7.3 thou/uL (4.0-11.0)
[2016-09-09 05:58] LABS: ALBUMIN 1.9 g/dL (3.4-5.0); CALCIUM 8.2 mg/dL (8.5-10.1); CREATININE 0.9 mg/dL (0.7-1.3); PHOSPHORUS 3.1 mg/dL (2.5-4.9); POTASSIUM 3.9 mmol/L (3.5-5.1)
[2016-09-09 08:30] VITALS: BP 173/98
[2016-09-09 13:15] VITALS: BP 161/90
[2016-09-09 15:55] VITALS: BP 176/95
[2016-09-09 19:06] VITALS: BP 154/71
[2016-09-10 03:40] VITALS: BP 150/94
[2016-09-10 05:56] LABS: HEMATOCRIT 29.4 % (42.0-52.0); MCH 27.4 pg (26.0-34.0); MCHC 34.1 g/dL (28.0-37.0); MCV 80.2 fL (80.0-100.0); PLATELET COUNT 431 thou/uL (150-400); RBC 3.67 mil/uL (4.50-6.00); RDW 16.9 % (10.5-14.5); WBC 6.1 thou/uL (4.0-11.0)
[2016-09-10 06:11] LABS: ALBUMIN 1.9 g/dL (3.4-5.0); CALCIUM 8.1 mg/dL (8.5-10.1); CREATININE 0.9 mg/dL (0.7-1.3); PHOSPHORUS 2.9 mg/dL (2.5-4.9); POTASSIUM 3.6 mmol/L (3.5-5.1)
[2016-09-10 06:29] LABS: MANUAL DIFF YES
[2016-09-10 07:03] VITALS: BP 139/85
[2016-09-10 08:03] LABS: ABSOLUTE NEUTROPHILS 3.8 thou/uL (1.4-8.2); ANISOCYTOSIS 1+; ATYPICAL LYMPHS 1 %; TOTAL CELL COUNT 100
[2016-09-10 08:04] LABS: MICROCYTES 1+; OVALOCYTES FEW
[2016-09-10 12:27] VITALS: BP 147/90
[2016-09-10 15:23] VITALS: BP 144/86
[2016-09-10 19:00] VITALS: BP 134/78
[2016-09-11 02:19] LABS: URINE BILIRUBIN NEGATIVE (Negative); URINE BLOOD TRACE (Negative); URINE COLOR YELLOW; URINE GLUCOSE-RANDOM* 3+ (Negative); URINE KETONES NEGATIVE (Negative); URINE LEUKOCYTES-REFLEX NEGATIVE (Negative); URINE PROTEIN (DIPSTICK) NEGATIVE (Negative); URINE UROBILINOGEN 0.2 E.U./dl (0.2-1.0)
[2016-09-11 03:11] VITALS: BP 132/73
[2016-09-11 07:32] VITALS: BP 145/91
[2016-09-11] MEDS ORDERED: LANTUS100 UNIT/M SUBQ (09:29)
[2016-09-11] MEDS ORDERED: LEVAQUIN 500 M500 M2 PO (09:30)
[2016-09-11] MEDS ORDERED: HYDROCODONE-APA1 TA1 PO (09:31)
[2016-09-11 10:27] VITALS: BP 145/91
[2016-09-11 12:42] VITALS: BP 145/91
== END 2016-09-11 16:58 | disposition home health service (06) | DRG 291 ==
LOC: ER 10:52 → 4W 13:23 → EROBS 13:23 → 4W 16:04
PROVIDERS: Hospitalist; Nurse Practitioner; Physician Assistant; Specialist
DX: I11.0 Hypertensive heart disease with heart failure (principal); J15.6 Pneumonia due to other Gram-negative bacteria; J96.01 Acute respiratory failure with hypoxia; E43 Unspecified severe protein-calorie malnutrition; J44.0 Chronic obstructive pulmonary disease with (acute) lower respiratory infection; R78.81 Bacteremia; K61.1 Rectal abscess; I50.23 Acute on chronic systolic (congestive) heart failure; I42.9 Cardiomyopathy, unspecified; E11.40 Type 2 diabetes mellitus with diabetic neuropathy, unspecified; I25.10 Atherosclerotic heart disease of native coronary artery without angina pectoris; E87.6 Hypokalemia; F32.9 Major depressive disorder, single episode, unspecified; G89.29 Other chronic pain; M54.5 Low back pain; D64.9 Anemia, unspecified; E66.9 Obesity, unspecified; B96.1 Klebsiella pneumoniae [K. pneumoniae] as the cause of diseases classified elsewhere; Z95.1 Presence of aortocoronary bypass graft; Z87.891 Personal history of nicotine dependence; Z68.27 Body mass index [BMI] 27.0-27.9, adult; I25.2 Old myocardial infarction; Z79.4 Long term (current) use of insulin; Z79.899 Other long term (current) drug therapy
CPT/HCPCS: 10045

== ENCOUNTER 2017-09-17 23:55 | Inpatient (IN) | payer OTHER ==
[~2017-09-17] VITALS: Ht 198.1 cm; Wt 99.2 kg
--- NOTE | ~2017-09-17 | EKG ---
[place] [address] [employer] [facility] [place] [address] ELECTROCARDIOGRAM REPORT Name: ALYSONJOHN ALYCIA Room #: 364-P ADM IN M.R.#: [id number] Admission: 09/18/17 Attend Phys: Venancio Alfaro MD Discharge: Date of : 56 Report #: [id number] THIS REPORT FOR: //name// [facility] ED Test Date: 2017-09-18 Test Time: 00:10:42 Pat Name: JOHN SHIELDS Department: Room: 364 Gender: M [employer]razier: VERONICA : 1960 Requested By: Real Price Order Number: [id number] MD: Vic Parmar Measurements Intervals [place] Rate: 69 P: 69 ID: [id number] QRS: 20 QRSD: 100 T: 194 QT: 425 QTc: 456 Interpretive Statements Sinus rhythm Probable left atrial enlargement ST and T wave abnormality, consider lateral ischemia Compared to ECG 09/06/2016 11:30:33 Lateral T wave abnormality is more pronounced Electronically Signed On 09-18-2017 8:09:51 CDT by Vic Parmar [email or web address] <ELECTRONICALLY SIGNED> By: Vic Parmar MD, [facility] 09/18/17 0809 0010 0010 Vic Parmar MD, [facility] /EPI
--- NOTE | ~2017-09-17 | HC ---
[facility] [place] [address] CONSULTATION Name: JOHN SHIELDS Room #: 364-P [facility] IN M.R.#: [id number] Admission: 09/18/17 Attend Phys: Venancio Alfaro MD Discharge: 09/19/17 Date of : 56 Report #: [id number] THIS REPORT FOR: //name// CC: Venancio SOTO DATE OF SERVICE: 09/19/2017 HISTORY OF PRESENT ILLNESS: A 57-year-old -Tunisian male with diabetes mellitus, hypertension, systolic congestive heart failure, admitted with weakness, dizziness, and lightheadedness. He apparently had his insulin regimen changed recently at the [place]. He had some blood sugars as high as 500. He is having decreased appetite. He was noted to be hypotensive, blood pressure in the 60s, ended up being given 3 liters of normal saline. He had a blood sugar of 47. He is now feeling better and he thinks he is basically back to normal. I am seeing him in rehabilitation medicine consultation. PAST MEDICAL HISTORY: Includes insulin-dependent diabetes mellitus, hypertension, COPD, pulmonary edema, coronary artery disease, CABG x 6 ____, history of DKA, perirectal abscess I and D, smoker, 29-qrul-aadn history, chronic back pain. ALLERGIES: No known drug allergies. MEDICATIONS: Please see the full medication listing. SOCIAL HISTORY: Lives in a duplex alone, one step, was modified independent using the [employer] cane, is one step in. REVIEW OF SYSTEMS: No current complaints of chest pain, shortness of breath or abdominal discomfort. PHYSICAL EXAMINATION: GENERAL: A 57-year-old -Tunisian male, tall, in no obvious distress. He is alert, pleasant, oriented. HEENT: Appeared to be benign. Cranial nerves are grossly intact. Facies are symmetric. VITAL SIGNS: Last recorded temperature is 98.4, pulse 73, respirations 19, blood pressure 159/87. NEUROLOGIC: He has functional range of motion of both upper extremities. Strength is a grade 4-4+/5. DTRs are trace to 1. Lower extremities: He does have some decreased distal sensation consistent with his diabetic peripheral neuropathy. This is in a stocking distribution. There is no focal calf swelling. No distal lower extremity edema. Strength of the lower extremities is probably a grade 4-4+/5. Tone is otherwise intact. He was most recently sit to stand, contact guard and ambulated 150 feet, min assist with the IV pole [facility] [address] [place] [address] CONSULTATION Name: JOHN SHIELDS Room #: 364-P [facility] IN [facility].#: [id number] Admission: 09/18/17 Attend Phys: Venancio Alfaro MD Discharge: 09/19/17 Date of : 56 Report #: [id number] yesterday. He indicates he was up and did a full lap around the griffith and is feeling much better today. I do not have today's physical therapy note as of yet. ASSESSMENT: A 57-year-old -Tunisian male with the following problem list: 1. Medical complexity with generalized debilitation. He is improving. 2. Initial hypotension, needing pressors. 3. Acute renal insufficiency. 4. Diabetes mellitus with hypoglycemia. 5. Initial dizziness likely multifactorial with hypoglycemia, hypotension and dehydration. 6. Systolic congestive heart failure. 7. Coronary artery disease status post myocardial infarction with graft. PLAN: Therapy evaluations are continuing. He notes he is doing much better and I am anticipating that he will be able to return directly home with likely some home health care. We will continue to follow for now. Thank you for asking us to assist in this patient's care. By: [id number] Nathan Alonso MD /nt
--- NOTE | ~2017-09-17 | 2DMMODE ---
[facility] [address] [place] [address] 2 D/M-MODE ECHOCARDIOGRAM Name: ALYSONJOHN TONG Room #: 364-P ADM IN .R.#: [id number] Admission: 09/18/17 Attend Phys: Venancio Alfaro MD Discharge: Date of : 56 Date of Service: 09/18/17 1214 Report #: [id number] THIS REPORT FOR: //name// APPROVED REPORT Study performed: 09/18/2017 11:21:42 EXAM: Comprehensive 2D, Doppler, and color-flow Echocardiogram Patient Location: Echo lab Room #: 364 Status: routine BSA: 2.31 HR: 74 bpm BP: 141/80 mmHg Rhythm: NSR Other Information Study Quality: Adequate/low parasternal window Indications Dizziness. Hx: CHF, CABG, HTN, HLP, DM, COPD 2D Dimensions RVDd: 38.86 mm LVEF(%): 39.20 (>50%) IVSd: 13.54 (7-11mm) LVOT Diam: 22.67 (18-24mm) LVDd: 55.77 mm PWd: 11.25 (7-11mm) LVDs: 45.02 (25-40mm) Aortic Root: 36.60 mm Negron's LVEF: 39.20 % Volumes Left Atrial Volume (Systole) Single Plane 4CH: 85.66 mL Single Plane 2CH: 111.71 mL LA ESV Index: 45.00 mL/m2 Aortic Valve AoV Peak Daron.: 2.26 m/s AO Peak Gr.: 20.39 mmHg LVOT Max P.63 mmHg AO Mean Gr.: 11.64 mmHg AO V2 Mean: 1.61 m/s LVOT Max V: 1.08 m/s AO V2 VTI: 45.42 cm MONROE Vmax: 1.92 cm2 [facility] [address] [place] [address] 2 D/M-MODE ECHOCARDIOGRAM Name: JOHN SHIELDS Room #: 364-P [facility] IN [facility].#: [id number] Admission: 09/18/17 Attend Phys: Venancio Alfaro MD Discharge: Date of : 56 Date of Service: 09/18/17 1214 Report #: [id number] Mitral Valve E/A Ratio: 1.2 MV Decel. Time: 195.21 ms MV E Max Daron.: 1.12 m/s MV A Daron.: 0.91 m/s MV PHT: 56.61 ms IVRT: 69.20 ms Tricuspid Valve TR Peak Daron.: 2.97 m/s RAP Estimate: 5.00 mmHg TR Peak Gr.: 35.24 mmHg PA Pressure: 40.00 mmHg Left Ventricle The left ventricle is normal size. Mild septal ventricular hypertrophy. Left ventricular systolic function is mild to moderately decreased. LVEF is 40-45%. Right Ventricle The right ventricle is normal size. The right ventricular systolic function is low normal. Atria Left atrium is moderately dilated. The right atrium size is normal. Aortic Valve Aortic valve is calcified. No aortic regurgitation is present. There is borderline mild valvular aortic stenosis. Calculated aortic valve area is 1.9 cm2 with maximum pressure gradient of 20 mmHg and mean pressure gradient of 12 mmHg. Mitral Valve The mitral valve is normal in structure. Trace mitral regurgitation. Tricuspid Valve The tricuspid valve is normal in structure. Trace tricuspid regurgitation. Estimated PAP is 40mmHg. Pulmonic Valve Pulmonic valve is not well visualized. Great Vessels The aortic root is normal in size. Ascending aorta is not well visualized. IVC is normal in size and collapses >50% with [facility] [address] [place] [address] 2 D/M-MODE ECHOCARDIOGRAM Name: ALYSONJOHN ALYCIA Room #: 364-P [facility] IN [facility]#: [id number] Admission: 09/18/17 Attend Phys: Venancio Alfaro MD Discharge: Date of : 56 Date of Service: 09/18/17 1214 Report #: [id number] inspiration. Pericardium There is no pericardial effusion. <Conclusion> The left ventricle is normal size. LVEF is 40-45%. Left atrium is moderately dilated. Aortic valve is calcified. There is borderline mild valvular aortic stenosis. Calculated aortic valve area is 1.9 cm2 with maximum pressure gradient of 20 mmHg and mean pressure gradient of 12 mmHg. The mitral valve is normal in structure. Trace mitral regurgitation. The tricuspid valve is normal in structure. Trace tricuspid regurgitation. Estimated PAP is 40mmHg. Pulmonic valve is not well visualized. There is no pericardial effusion. <ELECTRONICALLY SIGNED> By: Chirag Cantu MD 09/18/17 1214 13 13 Chirag Cantu MD /INF
[~2017-09-17 23:55] MED LIST changes: +HYDROCODONE-APA1 TA1 PO; +LEVAQUIN 500 M500 M2 PO
[2017-09-17 23:56] VITALS: BP 117/81
[2017-09-18 00:25] LABS: HEMOGLOBIN 14.4 gm/dL (14.0-18.0); MCH 26.9 pg (26.0-34.0); MCHC 34.2 g/dL (28.0-37.0); MCV 78.6 fL (80.0-100.0); PLATELET COUNT 211 thou/uL (150-400); RBC 5.35 mil/uL (4.50-6.00); RDW 16.8 % (10.5-14.5); WBC 9.3 thou/uL (4.0-11.0)
[2017-09-18 00:29] LABS: CALCIUM 8.8 mg/dL (8.5-10.1); CREATININE 2.2 mg/dL (0.7-1.3); POTASSIUM 3.9 mmol/L (3.5-5.1)
[2017-09-18 00:37] LABS: TROPONIN-I 0.06 ng/mL (<0.06)
[2017-09-18 00:57] LABS: ABSOLUTE NEUTROPHILS 7.1 thou/uL (1.4-8.2); ANISOCYTOSIS SLIGHT
[2017-09-18 04:06] LABS: URINE BLOOD NEGATIVE (Negative); URINE CLARITY CLEAR; URINE COLOR YELLOW; URINE GLUCOSE-RANDOM* 3+ (Negative); URINE KETONES TRACE (Negative); URINE LEUKOCYTES-REFLEX NEGATIVE (Negative); URINE NITRITE-REFLEX NEGATIVE (Negative); URINE PROTEIN (DIPSTICK) 1+ (Negative); URINE SPECIFIC GRAVITY 1.015 (1.005-1.035); URINE UROBILINOGEN 0.2 E.U./dl (0.2-1.0)
[2017-09-18 04:12] LABS: ICTOTEST (BILI CONFIRMATORY) Negative (Negative); URINE BILIRUBIN NEGATIVE (Negative)
[2017-09-18 04:20] LABS: HYALINE CASTS 4-10 Moderate /LPF (None Seen); MUCUS 0-3 Light strn/LPF (None Seen)
[2017-09-18 04:21] LABS: AMORPHOUS URATES Few /LPF (None Seen); SQUAMOUS None Seen /LPF (0-3)
[2017-09-18 04:22] LABS: BACTERIA-REFLEX None Seen /HPF (None Seen); URINE RBC 0-2 Rare /HPF (0-2); URINE WBC-REFLEX None Seen /HPF (0-5)
[2017-09-18 04:41] VITALS: BP 118/61
[2017-09-18] MEDS ORDERED: LANTUS100 UNIT/M SUBQ (05:15)
[2017-09-18] MEDS ORDERED: PRINIVIL20 M1 PO (05:25)
[2017-09-18] MEDS ORDERED: COREG25 MG PO (05:26)
[2017-09-18] MEDS ORDERED: NEURONTIN 300300 M1 PO (05:27)
[2017-09-18 08:22] VITALS: BP 141/80
[2017-09-18 10:58] VITALS: BP 116/64
[2017-09-18 14:45] VITALS: BP 121/79
[2017-09-18 19:45] VITALS: BP 144/72
[2017-09-19 04:10] VITALS: BP 162/93
[2017-09-19 06:50] LABS: HEMATOCRIT 40.4 % (42.0-52.0); HEMOGLOBIN 13.2 gm/dL (14.0-18.0); MCH 25.9 pg (26.0-34.0); MCHC 32.7 g/dL (28.0-37.0); MCV 79.4 fL (80.0-100.0); RBC 5.08 mil/uL (4.50-6.00); RDW 16.9 % (10.5-14.5); WBC 9.4 thou/uL (4.0-11.0)
[2017-09-19 07:00] VITALS: BP 159/87
[2017-09-19 07:10] LABS: CALCIUM 8.4 mg/dL (8.5-10.1); POTASSIUM 4.1 mmol/L (3.5-5.1)
[2017-09-19 12:22] VITALS: BP 159/79
[2017-09-19] MEDS ORDERED: LANTUS100 UNIT/M SUBQ (13:14)
[2017-09-19] MEDS ORDERED: COLACE100 MG PO (13:26)
[2017-09-19 13:27] VITALS: BP 159/79
== END 2017-09-19 14:40 | disposition home or self-care (01) | DRG 682 ==
LOC: ER 23:55 → EROBS 09-18 01:47 → 3W 09-18 01:47 → EROBS 09-18 04:28 → 3W 09-18 04:42
PROVIDERS: Emergency Medicine; Nurse Practitioner Family
DX: N17.0 Acute kidney failure with tubular necrosis (principal); E43 Unspecified severe protein-calorie malnutrition; I50.20 Unspecified systolic (congestive) heart failure; E87.2 Acidosis; I50.9 Heart failure, unspecified; I25.10 Atherosclerotic heart disease of native coronary artery without angina pectoris; G89.29 Other chronic pain; M54.9 Dorsalgia, unspecified; F32.9 Major depressive disorder, single episode, unspecified; E11.65 Type 2 diabetes mellitus with hyperglycemia; E11.40 Type 2 diabetes mellitus with diabetic neuropathy, unspecified; I11.0 Hypertensive heart disease with heart failure; J44.9 Chronic obstructive pulmonary disease, unspecified; I95.9 Hypotension, unspecified; E11.649 Type 2 diabetes mellitus with hypoglycemia without coma; E86.0 Dehydration; E78.5 Hyperlipidemia, unspecified; Z79.899 Other long term (current) drug therapy; Z79.82 Long term (current) use of aspirin; Z79.4 Long term (current) use of insulin; Z87.891 Personal history of nicotine dependence; Z95.1 Presence of aortocoronary bypass graft; I25.2 Old myocardial infarction; Z68.25 Body mass index [BMI] 25.0-25.9, adult
CPT/HCPCS: 10879

== ENCOUNTER 2017-11-22 03:18 | Inpatient (IN) | payer OTHER ==
[~2017-11-22] VITALS: Ht 198.1 cm; Wt 112.8 kg
[2017-11-22] VITALS (8 sets, daily range): BP systolic 112–157; BP diastolic 64–88
--- NOTE | ~2017-11-22 | 2DMMODE ---
[facility] [address] [place] [address] 2 D/M-MODE ECHOCARDIOGRAM Name: JOHN SHIELDS Room #: 205-P ADM IN M.R.#: [id number] Admission: 11/22/17 Attend Phys: Kingsley Puri MD Discharge: Date of : 56 Date of Service: 11/22/17 0954 Report #: [id number] THIS REPORT FOR: //name// APPROVED REPORT Study performed: 11/22/2017 08:43:56 EXAM: Limited 2D, Doppler, and color-flow Echocardiogram Patient Location: Bedside Room #: [facility] Status: routine BSA: 2.33 HR: 65 bpm BP: 141/76 mmHg Rhythm: NSR Other Information Study Quality: Adequate/low parasternal window. Indications Abbreviated echo for CVA with bubble study. Hx: CABG, CHF, COPD, HTN, DM. (Complete echo done 09/18/17) Echo Enhancing Agent Indication: Rule out Shunt Agent(s) / Amount(s) Used: Agitated Saline 6 cc Tricuspid Valve TR Peak Daron.: 2.98 m/s RAP Estimate: 5.00 mmHg TR Peak Gr.: 35.44 mmHg PA Pressure: 40.00 mmHg Left Ventricle The left ventricle is normal size. Mild septal hypertrophy is present. Left ventricular systolic function is mildly decreased. Hypokinesis of mid to distal inferior wall LVEF is 45-50%. Right Ventricle The right ventricle is normal size. The right ventricular systolic function is normal. Atria Left atrium is dilated. No shunting noted by contrast bubble injection. The right atrium size is normal. [facility] [address] [address] 2 D/M-MODE ECHOCARDIOGRAM Name: JOHN SHIELDS Room #: 205-P [facility] IN [facility]#: [id number] Admission: 11/22/17 Attend Phys: Kingsley Puri MD Discharge: Date of : 56 Date of Service: 11/22/17 0954 Report #: [id number] Aortic Valve Aortic valve is calcified. No aortic regurgitation is present. Mitral Valve The mitral valve is normal in structure. Trace mitral regurgitation. Tricuspid Valve The tricuspid valve is normal in structure. Trace tricuspid regurgitation. Estimated PAP is 40mmHg. Great Vessels IVC is normal in size and collapses >50% with inspiration. Pericardium There is no pericardial effusion. <Conclusion> Limited echocardiogram Left ventricular systolic function is mildly decreased. Hypokinesis of mid to distal inferior wall LVEF is 45-50%. No shunting noted by contrast bubble injection. Aortic valve is calcified. The mitral valve is normal in structure. Trace mitral regurgitation. Trace tricuspid regurgitation. Estimated pulmonary artery pressure of 40mmHg. There is no pericardial effusion. <ELECTRONICALLY SIGNED> By: Vic Parmar MD, [facility] 11/22/17 0954 09 3 Vic Parmar MD, [facility] /INF
--- NOTE | ~2017-11-22 | HC ---
[facility] [place] [address] CONSULTATION Name: JOHN SHIELDS Room #: 205-P [facility] IN M.R.#: [id number] Admission: 11/22/17 Attend Phys: Kingsley Puri MD Discharge: 11/24/17 Date of : 56 Report #: [id number] THIS REPORT FOR: //name// CC: Kingsley Puri FAM unknown Jayme Richter DATE OF SERVICE: 11/24/2017 REASON FOR CONSULTATION: CVA. HISTORY OF PRESENT ILLNESS: The patient is a 57-year-old previously followed by Dr. Cantu, has a history of coronary artery disease, status post 6-vessel CABG as well as diabetes, hypertension, hyperlipidemia and lumbar spine issues, who presented with new onset stroke symptoms with evidence of a left cerebral CVA on CT scan. He has been seen by Neurology and is being scheduled for rehab. He had an echocardiogram yesterday showing EF of 45-50% with no evidence of PFO. REVIEW OF SYSTEMS: A 12-point review of systems was performed. GENERAL: He denies any fevers or chills. HEENT: He does have some blurred vision. He denies sore throat. CARDIOVASCULAR: As above. PULMONARY: No productive cough. GASTROINTESTINAL: No nausea or vomiting. GENITOURINARY: No dysuria. MUSCULOSKELETAL: No myalgias or arthralgias. ENDOCRINE: No heat or cold intolerance. NEUROLOGIC: His arm weakness is improving. He still has speech difficulty and blurred vision. SOCIAL HISTORY: Former smoker. FAMILY HISTORY: Includes coronary artery disease. ALLERGIES: None. MEDICATIONS: Have been reviewed. PHYSICAL EXAMINATION: VITAL SIGNS: Temperature is 36.9, pulse 79, respirations 18, blood pressure 147/82, sats 100%. GENERAL: No acute distress. HEENT: Oropharynx is clear. NECK: Supple with no thyromegaly or carotid bruits. HEART: Regular rate and rhythm. No murmurs, rubs, or gallops. [facility] [address] [place] [address] CONSULTATION Name: JOHN SHIELDS ALYCIA Room #: [address] [place] [address] IN [facility].#: [id number] Admission: 11/22/17 Attend Phys: Kingsley Puri MD Discharge: 11/24/17 Date of : 56 Report #: [id number] LUNGS: Clear to auscultation bilaterally. ABDOMEN: Soft, nontender, nondistended. EXTREMITIES: No clubbing, cyanosis, or edema. Appear that his arm weakness has resolved. NEUROLOGICAL: Cranial nerves appear to be grossly intact. EKG performed yesterday shows normal sinus rhythm with nonspecific intraventricular conduction delay and no ischemic changes. His echocardiogram shows EF of 45-50%. LABORATORY DATA: White count 5.7, hemoglobin 12.4, platelets 193. Coags: INR 1.0. Chemistries: Sodium 141, potassium 4.0, creatinine 0.9, glucose 155. Troponin was normal. ProBNP 1161. CRP less than 2. LDL is 109. Chest x-ray showed no acute process. CT shows the stroke as I mentioned above. Carotid Doppler showed shows no significant stenosis. ASSESSMENT: 1. Cerebrovascular accident. 2. Coronary artery disease. 3. Diabetes mellitus. 4. Hypertension. 5. Hyperlipidemia. PLAN: In summary, the patient is a 57-year-old who presents with new onset CVA. On telemetry, he remains in sinus rhythm with no evidence of atrial fibrillation. His echocardiogram showed no obvious source for the CVA. Therefore, the etiology of his CVA is unclear. I recommend optimizing his medical regimen including his diabetes and his lipid profile. From a cardiovascular standpoint, appears to be stable without any symptoms of angina nor any congestive heart failure symptoms. He can continue with the beta hannah therapy. I think he is stable for transfer for rehab from his CVA. Please call with questions. <ELECTRONICALLY SIGNED> By: Tacos Quesada MD 11/25/17 1328 1217 1935 Tacos Quesada MD /nt
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
--- NOTE | ~2017-11-22 | EKG ---
[place] [address] [address] [facility] [place] [address] ELECTROCARDIOGRAM REPORT Name: ALYSONJOHN TONG Room #: 205-P [facility] IN .R.#: [id number] Admission: 11/22/17 Attend Phys: Kingsley Puri MD Discharge: 11/24/17 Date of : 56 Report #: [id number] THIS REPORT FOR: //name// [facility] ED Test Date: 2017-11-22 Test Time: 04:00:47 Pat Name: JOHN SHIELDS Department: Room: Gender: M [employer]: TOM : 1960 Requested By: Adan Mcgrath Order Number: [id number] MD: Vic Parmar Measurements Intervals [place] Rate: 63 P: 59 [place]: 166 QRS: 18 QRSD: 106 T: 143 QT: 438 QTc: 449 Interpretive Statements Sinus rhythm Probable left atrial enlargement Borderline low voltage, extremity leads Nonspecific T abnormalities, lateral leads Baseline wander in lead(s) V3 Compared to ECG 09/18/2017 00:10:42 No significant change was found Electronically Signed On 11-25-2017 9:01:49 CDT by Vic Parmar [email or web address] <ELECTRONICALLY SIGNED> By: Vic Parmar MD, [facility] 11/25/17 0901 0400 0400 Vic Parmar MD, [facility] /EPI
[~2017-11-22 03:18] MED LIST changes: +COREG25 MG PO; +PRINIVIL20 M1 PO
[2017-11-22 04:04] LABS: HEMATOCRIT 38.8 % (42.0-52.0); HEMOGLOBIN 13.1 gm/dL (14.0-18.0); MCH 27.8 pg (26.0-34.0); MCHC 33.8 g/dL (28.0-37.0); MCV 82.2 fL (80.0-100.0); PLATELET COUNT 199 thou/uL (150-400); RBC 4.72 mil/uL (4.50-6.00); RDW 16.8 % (10.5-14.5); WBC 5.3 thou/uL (4.0-11.0)
[2017-11-22 04:15] LABS: APTT 25.7 Seconds (24.5-32.8); PROTIME 10.2 Seconds (9.3-11.4)
[2017-11-22 04:19] LABS: CREATININE 1.3 mg/dL (0.7-1.3)
[2017-11-22 04:21] LABS: ANION GAP 7 mmol/L (7-16); BUN 23 mg/dL (7-18); CALCIUM 9.4 mg/dL (8.5-10.1); CHLORIDE 97 mmol/L (98-107); CO2 28 mmol/L (21-32); POTASSIUM 4.1 mmol/L (3.5-5.1); SODIUM 132 mmol/L (136-145)
[2017-11-22 04:25] LABS: GLUCOSE 559 mg/dL (74-106)
[2017-11-22 04:26] LABS: ALBUMIN 3.3 g/dL (3.4-5.0); MAGNESIUM 2.1 mg/dL (1.8-2.4); SGOT 24 U/L (15-37); SGPT 40 U/L (30-65); TOTAL BILIRUBIN 1.1 mg/dL (<0.1-1.0); TOTAL PROTEIN 7.6 g/dL (6.4-8.2); TROPONIN-I <0.06 ng/mL (<0.06)
[2017-11-22 04:48] LABS: ABSOLUTE NEUTROPHILS 2.6 thou/uL (1.4-8.2)
[2017-11-22 04:49] LABS: ANISOCYTOSIS 1+
[2017-11-22 07:57] LABS: CHOLESTEROL 186 mg/dL (<200); HDL CHOLESTEROL 62 mg/dL (>40); LDL CHOLESTEROL 109 mg/dL (<100); TRIGLYCERIDE 75 mg/dL (<150); VLDL 15 mg/dL (<40)
[2017-11-22 07:58] LABS: URINE BILIRUBIN NEGATIVE (Negative); URINE BLOOD 1+ (Negative); URINE CLARITY CLEAR; URINE COLOR YELLOW; URINE GLUCOSE-RANDOM* 3+ (Negative); URINE KETONES NEGATIVE (Negative); URINE LEUKOCYTES-REFLEX NEGATIVE (Negative); URINE NITRITE-REFLEX NEGATIVE (Negative); URINE PROTEIN (DIPSTICK) TRACE (Negative); URINE SPECIFIC GRAVITY <= 1.005 (1.005-1.035); URINE UROBILINOGEN 0.2 E.U./dl (0.2-1.0)
[2017-11-22 08:06] LABS: AMP/METHAMP Negative (Negative); BARBITURATES Negative (Negative); BENZODIAZEPINES Negative (Negative); CASTS None Seen /LPF (None Seen); COCAINE Negative (Negative); CRYSTALS None Seen /LPF (None Seen); METHADONE Negative (Negative); OPIATES Negative (Negative); PCP Negative (Negative); SQUAMOUS None Seen /LPF (0-3)
[2017-11-22 08:07] LABS: BACTERIA-REFLEX None Seen /HPF (None Seen); URINE RBC 0-2 Rare /HPF (0-2); URINE WBC-REFLEX None Seen /HPF (0-5)
[2017-11-23 03:35] VITALS: BP 121/75
[2017-11-23 06:02] LABS: HEMATOCRIT 36.6 % (42.0-52.0); HEMOGLOBIN 12.4 gm/dL (14.0-18.0); MCH 27.6 pg (26.0-34.0); MCHC 33.8 g/dL (28.0-37.0); MCV 81.7 fL (80.0-100.0); PLATELET COUNT 193 thou/uL (150-400); RBC 4.48 mil/uL (4.50-6.00); RDW 16.6 % (10.5-14.5); WBC 5.7 thou/uL (4.0-11.0)
[2017-11-23 06:10] LABS: CALCIUM 8.4 mg/dL (8.5-10.1); CREATININE 0.9 mg/dL (0.7-1.3); MAGNESIUM 1.9 mg/dL (1.8-2.4)
[2017-11-23 06:41] LABS: ABSOLUTE NEUTROPHILS 2.4 thou/uL (1.4-8.2)
[2017-11-23 06:42] LABS: ANISOCYTOSIS 2+; POLYCHROMASIA OCCASIONAL
[2017-11-23 07:51] VITALS: BP 137/74
[2017-11-23 11:50] VITALS: BP 104/59
[2017-11-23 16:45] VITALS: BP 138/78
[2017-11-23 19:30] VITALS: BP 129/76
[2017-11-24 03:43] VITALS: BP 161/87
[2017-11-24 07:34] VITALS: BP 147/82
[2017-11-24 12:05] VITALS: BP 131/79
[2017-11-24 12:05] LABS: GLYCOHEMOGLOBIN (HGB A1C) 11.7 % (4.8-5.6)
[2017-11-24] MEDS ORDERED: ATORVASTATIN CA40 MG PO (12:29)
== END 2017-11-24 14:33 | DRG 65 ==
LOC: ER 03:18 → 2N 05:06 → EROBS 05:06 → 2N 05:06
PROVIDERS: Emergency Medicine; Hospitalist; Nurse Practitioner; Psychiatry & Neurology Neuromuscular Medicine
DX: I63.9 Cerebral infarction, unspecified (principal); I42.9 Cardiomyopathy, unspecified; G81.91 Hemiplegia, unspecified affecting right dominant side; I50.20 Unspecified systolic (congestive) heart failure; I11.0 Hypertensive heart disease with heart failure; R47.01 Aphasia; R47.81 Slurred speech; J44.9 Chronic obstructive pulmonary disease, unspecified; E78.5 Hyperlipidemia, unspecified; I25.10 Atherosclerotic heart disease of native coronary artery without angina pectoris; E11.65 Type 2 diabetes mellitus with hyperglycemia; F32.9 Major depressive disorder, single episode, unspecified; E11.40 Type 2 diabetes mellitus with diabetic neuropathy, unspecified; M54.9 Dorsalgia, unspecified; G89.29 Other chronic pain; R26.9 Unspecified abnormalities of gait and mobility; Z91.14 Patient's other noncompliance with medication regimen; I25.2 Old myocardial infarction; Z95.1 Presence of aortocoronary bypass graft; Z87.891 Personal history of nicotine dependence; Z79.4 Long term (current) use of insulin; Z79.82 Long term (current) use of aspirin; Z79.899 Other long term (current) drug therapy; Z82.49 Family history of ischemic heart disease and other diseases of the circulatory system
CPT/HCPCS: 10081

== ENCOUNTER 2017-11-24 08:56 | Inpatient (IN) | payer OTHER ==
[~2017-11-24] VITALS: Ht 198.1 cm; Wt 108.9 kg
--- NOTE | ~2017-11-24 | PLAN ---
[facility] [place] [address] [place] [address] REHAB UNIT PLAN OF CARE Name: JOHN SHIELDS Room #: 503-P [facility] IN M.R.#: [id number] Admission: 11/24/17 Attend Phys: Nathan Alonso MD Discharge: 11/30/17 Date of : 56 Report #: [id number] THIS REPORT FOR: //name// CC: Nathan Alonso [facility] unknown DATE OF SERVICE: 11/26/2017 INDICATIONS: The patient is seen back today in followup. He is in no distress. Last recorded temperature is 98.3, pulse of 70, respirations 16, and blood pressure 124/77. He appears to have decreased insight into his deficits. He does have evidence of right-sided peripheral vision loss with right hemianopsia. He has some decreased coordination of the right upper extremity. He has decreased sensation in his feet bilaterally, which is premorbid. Transfers are standby assistance. He is needing contact guard for basic gait. Lower body dressing is min assist. He does have moderate comprehensive deficits. He is on a nectar thickened liquid diet. ASSESSMENT: 1. Acute left middle cerebral artery infarction. 2. Dominant right-sided flaccid right hemiparesis. 3. Right hemianopsia. 4. Dysphagia, on thickened liquids. 5. Insulin-dependent diabetes mellitus, uncontrolled. 6. Hypertension. 7. Congestive heart failure. 8. Depression. PLAN: The overall plan of care is based on the preadmission screen, post-admission physician evaluation and information garnered from therapy assessments. 1. Estimated length of stay is probably at least 7-10 days. I am hoping he will be cooperative with the therapy program. 2. Medical prognosis is reasonably good. 3. Anticipated interventions includes the interdisciplinary acute inpatient rehabilitation program with PT, OT, speech therapy, rehab nursing assisting regarding medication management, skin care prophylaxis, bowel and bladder issues and nursing education. Case management is involved as well as the universal branch consultant physicians. 4. Anticipated functional outcomes are for the patient to become modified independent with transfers, mobility and ADLs, so he can return back to the home setting. 5. Discharge destination will be back to home setting. We will need to further assess the support he has. 6. Expected therapy by discipline includes PT, OT and speech [address] [address] REHAB UNIT PLAN OF CARE Name: JOHN SHIELDS ALYCIA Room #: 503-P [facility] IN ..#: [id number] Admission: 11/24/17 Attend Phys: Nathan Alonso MD Discharge: 11/30/17 Date of : 56 Report #: [id number] hour per day each 5 days a week throughout the duration of the acute inpatient rehabilitation stay. <ELECTRONICALLY SIGNED> By: Nathan Alonso MD 12/04/17 1735 0957 1219 Nathan Alonso MD /nt
--- NOTE | ~2017-11-24 | D ---
[facility] [place] [address] [place] [address] DISCHARGE SUMMARY Name: JOHN SHIELDS Room #: 503-P [facility] IN M.R.#: [id number] Admission: 11/24/17 Attend Phys: Nathan Alonso MD Discharge: 11/30/17 Date of : 56 Report #: [id number] THIS REPORT FOR: //name// CC: Nathan Alonso [facility] unknown DATE OF SERVICE: 11/30/2017 DISCHARGE DIAGNOSES: 1. Acute left middle cerebral artery infarction with hemorrhagic transformation and midline shift. 2. Dominant right-sided flaccid hemiparesis. 3. Right hemianopsia. 4. Aphasia. 5. Dysphagia. 6. Memory and cognitive deficits. 7. Insulin-dependent diabetes with hemoglobin A1c of 11.6. 8. Congestive heart failure. 9. Hypertension. 10. Depression. DISCHARGE MEDICATIONS: The patient is n.p.o. until reevaluated at [facility]. Prior to discharge, the patient had been given Colace, vitamin D, Lovenox 40 mg subQ at bedtime, Colace scheduled, Pepcid p.r.n., multivitamin daily, lisinopril 40 mg daily, Lantus 13 units b.i.d., Celexa 20 mg daily, vitamin D 1000 units daily, aspirin 81 mg daily, Lipitor 40 mg at bedtime, Humalog 6 units a.c., Coreg 25 mg twice a day, Humalog sliding scale a.c. and at bedtime, Gibbs p.r.n., Tylenol p.r.n. HOSPITAL COURSE: This is a 57-year-old gentleman who was residing on inpatient acute rehab for physical, occupational and speech therapies after an acute left-sided CVA on 11/30/2017. The patient developed increasing confusion, worsening aphasia and worsening weakness. A stat CT of his head was obtained and revealed enlargement and evolution of hypodense subacute infarct in the left posterior parietal and occipital lobes with new hypodensity within the area of infarct consistent with hemorrhagic transformation along with mild mass effect upon the occipital horn of the left lateral ventricle, mild left to right midline shift, increased from prior study. Subsequently, the patient was transferred to [facility] for further acute management of his hemorrhagic transformation. Hospitalist was in contact with [facility] accepting physician. As noted above, the patient is [address] [address] DISCHARGE SUMMARY Name: JOHN SHIELDS Room #: 503-P [facility] IN M.R.#: [id number] Admission: 11/24/17 Attend Phys: Nathan Alonso MD Discharge: 11/30/17 Date of : 56 Report #: [id number] n.p.o. until reevaluated at [facility]. His activity is up with assistance until further evaluation. Further orders per [facility]. By: 1359 1422 OLIVER Salomon /nt
--- NOTE | ~2017-11-24 | H ---
[facility] [place] [address] HISTORY AND PHYSICAL Name: JOHN SHIELDS Room #: 503-P [facility] IN M.R.#: [id number] Admission: 11/24/17 Attend Phys: Nathan Alonso MD Discharge: 11/30/17 Date of : 56 Report #: [id number] THIS REPORT FOR: //name// CC: Nathan Alonso FAM unknown DATE OF SERVICE: 11/25/2017 REFERRING PHYSICIAN: Dr. Puri. NOTE: I am covering for Dr. Nathan Alonso and therefore completing this history and physical for him. The patient will be admitted to Dr. Alonso. CHIEF COMPLAINT: Mobility and self-care deficits due to acute cerebrovascular accident. ETIOLOGICAL DIAGNOSES: Acute cerebrovascular accident with dominant-sided flaccid hemiparesis, left middle cerebral artery infarction. HISTORY OF PRESENT ILLNESS: This is a very pleasant 57-year-old right-hand dominant male who was admitted to [facility] on 11/22/2017 with symptoms of slurred speech, not feeling right, weakness and blurred vision. He was found to have a left middle cerebral artery infarction and was seen by Neurology. Unfortunately, he could not receive TPA according to records because it was too far out from the onset of symptoms. Neurology recommended aggressive blood sugar management and monitoring of blood pressure. He was evaluated for inpatient rehabilitation and found to be an appropriate patient for this level of care. He has numerous functional deficits including right homonymous hemianopsia, impaired safety awareness, right-sided weakness and balance deficits. Secondary to a decline in his overall function and the need for rehabilitation management of this complex medical condition as outlined above, he is now being admitted to the inpatient rehabilitation program under Dr. Nathan Alonso's care. PAST MEDICAL HISTORY: As above, also insulin-dependent diabetes mellitus; hypertension; chronic obstructive pulmonary disease; systolic congestive heart failure; pulmonary edema; coronary artery disease; lumbar surgery 04/12/2016; colonoscopy; history of smoking for approximately 40 pack years; chronic low back pain; bilateral lower extremity, hip, legs and foot neuropathy; coronary artery bypass grafting times 6 vessels 06/10/2015; history of diabetic ketoacidosis; right ankle surgery; depression; perirectal abscess with I and D and anoscopy, urinary retention. ALLERGIES: No known drug allergies. [address] [address] HISTORY AND PHYSICAL Name: JOHN SHIELDS [facility] Room #: 503-P DIS IN M.R.#: [id number] Admission: 11/24/17 Attend Phys: Nathan Alonso MD Discharge: 11/30/17 Date of : 56 Report #: [id number] MEDICATIONS: Reviewed. I note that he is receiving an aspirin daily. He takes Celexa for depression. He takes melatonin at night to help sleep, tamsulosin for urinary retention, gabapentin for neuropathic pain and hydrocodone for generalized pain. PAST SURGICAL HISTORY: As above. SIGNIFICANT FAMILY HISTORY: Reviewed with the patient, note a history of hypertension, alcohol use reported to be occasional. Smoking history, he quit over a year ago. He had smoked cigarettes at the time. Illicit drug use is noted to be positive for marijuana. SOCIAL HISTORY: He lives in a duplex with one stair to enter the duplex. He did use a quad cane premorbidly, but at times he states he did not have to use it. He was able to drive a car prior to admission. REVIEW OF SYSTEMS: As above. Specifically, he reports weakness, numbness and tingling in his feet. He denies chest pain, shortness of breath, fevers and chills. Otherwise, remainder of a 10-point review of systems is negative except for what was stated above. PHYSICAL EXAMINATION: GENERAL: No acute distress, well-developed, well-nourished. VITAL SIGNS: Afebrile. He is 6 feet 6 inches tall. CARDIOVASCULAR: S1, S2. LUNGS: Clear to auscultation. ABDOMEN: Soft, nontender, nondistended, positive bowel sounds. EXTREMITIES: Calves are nontender. LYMPHATICS: No cervical adenopathy. MUSCULOSKELETAL: He does show right-sided weakness compared to the left with 4/5 strength in the right upper extremity and right leg. Tone is mildly flaccid in the right arm compared to the left. There was no muscle atrophy. His awareness of the right side was decreased. NEUROLOGIC AND PSYCHIATRIC: Pleasant, cooperative. He shows mild expressive aphasia and mild dysarthria, impaired vision in the right visual lao, no brisk reflexes identified, impaired sensation in his feet bilaterally. He was alert and oriented, pleasant and cooperative with the exam. SKIN: No ulcerations were identified. IMPRESSION: Mobility and self-care deficits in a 57-year-old right-hand dominant male secondary to #1. 1. Dominant-sided flaccid, right hemiparesis. 2. Acute left middle cerebral artery infarction, stable, treated with conservative measures. 3. Insulin-dependent diabetes mellitus, uncontrolled. [facility] [address] [place] [address] HISTORY AND PHYSICAL Name: JOHN SHIELDS Room #: 503-P DIS IN M.R.#: [id number] Admission: 11/24/17 Attend Phys: Nathan Alonso MD Discharge: 11/30/17 Date of : 56 Report #: [id number] 4. Dysphagia. 5. Hypertension, severe. 6. Congestive heart failure, stable. 7. Dysarthria. 8. Right hemianopsia as a result of left MCA infarction. 9. Depression. PLAN: 1. Admit to the rehabilitation unit for comprehensive therapies. 2. Discussed the rehabilitation program in detail and he is in agreement with the program. 3. Dr. Alonso will assume care on November 26 when he returns to the hospital. 4. Please see the following plan of care and post admission physician evaluation for full details of his rehabilitation care plan. A post-admission physician evaluation has been completed. The patient's preadmission screening was reviewed in its entirety. The current clinical status is supported by the information contained within. He is an appropriate candidate to undergo a comprehensive inpatient rehabilitation program consisting of daily physical therapy, occupational therapy and speech therapy 3 hours a day for at least 5 days a week. Furthermore, nothing was changed since the preadmission screen that suggested the patient could not tolerate or benefit from the rehabilitation program. It is my opinion that inpatient rehabilitation rather than longterm is a more appropriate setting for the patient due to multiple medical needs, requiring comprehensive followup care. The patient is at risk of clinical complications due to participation in rehabilitation due to the above stated medical complications and conditions. My plan to manage these conditions, which could impact his participation in rehabilitation is to consult Internal Medicine and Neuropsychology to follow him closely during his rehabilitation course. INDIVIDUALIZED OVERALL PLAN OF CARE: Summarization of findings: The patient is receiving inpatient rehabilitation due to the following functional impairments: 1. Right hemianopsia. 2. Dominant-sided flaccid hemiparesis. 3. Expressive aphasia. 4. Dysphagia. 5. Dysarthria. 6. Balance deficits. 7. Diabetic peripheral neuropathy. IDENTIFIED INTERVENTIONS: These include physical therapy, occupational therapy and speech therapy to address his mobility, self-care deficits and [facility] [address] [place] [address] HISTORY AND PHYSICAL Name: JOHN SHIELDS Room #: 503-P [facility] IN M.R.#: [id number] Admission: 11/24/17 Attend Phys: Nathan Alonso MD Discharge: 11/30/17 Date of : 56 Report #: [id number] communication, cognitive and swallowing impairments. Physical Medicine and Rehabilitation will provide management of rehabilitation care plan and Internal Medicine will follow for multiple medical issues as stated above. Rehabilitation nursing care 24 hours a day for care needs, older adult social work specialist for discharge planning and medical equipment needs, dietitian consultation for nutritional purposes, neuropsychology for executive function. Estimated length of stay is approximately 10 days, which is in agreement with the preadmission screen. ANTICIPATED FUNCTIONAL OUTCOME: Modified independent with mobility and self-care skills. This is a realistic goal based on his previous level of function and progress thus far with therapies. ANTICIPATED DISCHARGE DESTINATION: Home with home health therapies. Medical prognosis is fair. He will continue to receive internal medicine followup. ANTICIPATED THERAPIES: Include physical therapy, occupational therapy and speech therapy 3 hours a day 5 days a week for an anticipated duration of 10 days. SUMMARIZATION OF TREATMENT PLAN: The patient will continue to receive an inpatient rehabilitation program as outlined above in an effort to improve his overall function and return him home at a modified independent level within 10 days. <ELECTRONICALLY SIGNED> By: Nathan Alonso MD 12/04/17 1730 1527 [id number] Ignacio Pelayo DO /nt
[2017-11-24] MEDS ORDERED: ATORVASTATIN CA40 MG PO (12:29)
[2017-11-24 14:30] VITALS: BP 118/72
[2017-11-24 19:11] VITALS: BP 153/80
[2017-11-25 05:30] LABS: HEMATOCRIT 37.6 % (42.0-52.0); HEMOGLOBIN 12.7 gm/dL (14.0-18.0); MCH 27.5 pg (26.0-34.0); MCHC 33.8 g/dL (28.0-37.0); MCV 81.4 fL (80.0-100.0); RBC 4.62 mil/uL (4.50-6.00); RDW 16.3 % (10.5-14.5); WBC 6.3 thou/uL (4.0-11.0)
[2017-11-25 05:59] LABS: CALCIUM 8.5 mg/dL (8.5-10.1); CREATININE 0.9 mg/dL (0.7-1.3); MAGNESIUM 1.7 mg/dL (1.8-2.4); POTASSIUM 4.2 mmol/L (3.5-5.1)
[2017-11-25 07:15] VITALS: BP 123/78
[2017-11-25 20:12] VITALS: BP 124/77
[2017-11-26 07:40] VITALS: BP 143/81
[2017-11-26 19:14] VITALS: BP 107/71
[2017-11-27 07:30] VITALS: BP 112/71
[2017-11-27 19:17] VITALS: BP 112/65
[2017-11-28 08:05] VITALS: BP 138/77
[2017-11-28 20:18] VITALS: BP 130/79
[2017-11-29 07:15] VITALS: BP 129/76
[2017-11-29 20:02] VITALS: BP 100/59
[2017-11-30 07:15] VITALS: BP 176/100
[2017-11-30 10:05] VITALS: BP 163/86
== END 2017-11-30 10:45 | disposition short-term general hospital (02) | DRG 56 ==
PROVIDERS: Nurse Practitioner Family
DX: G81.01 Flaccid hemiplegia affecting right dominant side (principal); I63.512 Cerebral infarction due to unspecified occlusion or stenosis of left middle cerebral artery; I50.20 Unspecified systolic (congestive) heart failure; I69.391 Dysphagia following cerebral infarction; R13.10 Dysphagia, unspecified; I69.311 Memory deficit following cerebral infarction; I69.318 Other symptoms and signs involving cognitive functions following cerebral infarction; R47.81 Slurred speech; J44.9 Chronic obstructive pulmonary disease, unspecified; I11.0 Hypertensive heart disease with heart failure; I25.10 Atherosclerotic heart disease of native coronary artery without angina pectoris; G89.29 Other chronic pain; M54.5 Low back pain; F32.9 Major depressive disorder, single episode, unspecified; R47.1 Dysarthria and anarthria; E11.42 Type 2 diabetes mellitus with diabetic polyneuropathy; R53.81 Other malaise; E78.5 Hyperlipidemia, unspecified; H53.461 Homonymous bilateral field defects, right side; E11.65 Type 2 diabetes mellitus with hyperglycemia; M54.9 Dorsalgia, unspecified; E55.9 Vitamin D deficiency, unspecified; Z87.891 Personal history of nicotine dependence; Z95.1 Presence of aortocoronary bypass graft; Z79.4 Long term (current) use of insulin; Z79.891 Long term (current) use of opiate analgesic; I25.2 Old myocardial infarction; Z79.899 Other long term (current) drug therapy; Z79.82 Long term (current) use of aspirin
CPT/HCPCS: 10112

== ENCOUNTER 2017-12-04 11:45 | Inpatient (IN) | payer OTHER ==
[~2017-12-04] VITALS: Ht 198.1 cm; Wt 102.7 kg
--- NOTE | ~2017-12-04 | HC ---
[facility] [place] [address] CONSULTATION Name: JOHN SHIELDS Room #: 506-1 ADM IN M.R.#: [id number] Admission: 12/04/17 Attend Phys: Nathan Alonso MD Discharge: Date of : 56 Report #: [id number] THIS REPORT FOR: //name// CC: Nathan Alonso [facility] unknown DATE OF SERVICE: 12/08/2017 NEUROBEHAVIORAL STATUS EXAMINATION ATTENDING PHYSICIAN: Nathan Alonso MD SPINNING ROOM WORKER: Jorge Acosta, PhD CLINICAL PRESENTATION: The patient is a 57-year-old male admitted to the rehabilitation unit at [facility] for comprehensive inpatient rehabilitation program to improve functional mobility and activities of daily living and self-care along with mental status secondary to deficits from a cerebrovascular accident. He was initially admitted with a left middle cerebral artery infarct on 11/30/2017. He experienced an enlargement of the stroke that was consistent with a hemorrhagic transformation. He was transferred to [facility] for further monitoring. There was no acute intervention and he was returned to the rehabilitation unit for continued inpatient rehabilitation. His medical history includes coronary artery disease, congestive heart failure, chronic back pain, COPD, depression, diabetic neuropathy, type 2 diabetes, hypertension, hyperlipidemia, history of [id number] amputation with the right ankle, perirectal abscess and pulmonary edema. A complete description of his medical condition and history can be found in his medical record. Neuropsychological consultation was requested to provide assistance in the assessment of cognitive and emotional status and to provide recommendations and services. The patient was living alone in a duplex with supportive family and friends prior to this most recent medical event. He was utilizing a quad cane prior to this most recent series of strokes. He has 1 son. TECHNIQUES UTILIZED: Clinical interview, review of medical records, staff consultation and behavioral observation, subtest and mini mental status exam 2 standard version. EXAMINATION FINDINGS: The patient was alert and cooperative with the assessment. However, he presents with decreased auditory/verbal comprehension. Verbal fluency is variable with repetitive speech and difficulty with elaboration. Moderate to severe aphasia is suggested. Deficits are in [facility] [address] [place] [address] CONSULTATION Name: JOHN SHIELDS ALYCIA Room #: 506-1 ADM IN M.R.#: [id number] Admission: 12/04/17 Attend Phys: Nathan Alonso MD Discharge: Date of : 56 Report #: [id number] comprehension and expression. He does not indicate feelings of depression or anxiety. The patient does appear frustrated with increased difficulty in communication and language. He was 2/2 for naming; however, auditory comprehension and copying was severely impaired. The patient shows severe deficits in comprehension. His mood is likely to be variable with intermittent agitation later in the day. DIAGNOSTIC IMPRESSION: Major neurocognitive disorder due to vascular disease, without behavior disorder -- extent to be determined, likely moderate to severe at this time. RECOMMENDATIONS: During rehabilitation specific and brief statements will be necessary to assist his comprehension. Redirection will be necessary when agitated. Brief statements indicating appropriate direction and behaivor along with nonverbal communication, e.g., smiling and noding to indicate compliance may assist communication. The patient will require 24-hour assistance in management of medication and nutrition upon discharge. Driving should be discontinued. A followup neuropsychological evaluation may be of benefit to clarify the severity of his cognitive deficits. Family education will be necessary for him to maintain safety. Auditory comprehension should improve; however, at this time it will be necessary for increased assistance in managing instrumental activities of daily living. Thank you very much for allowing me to provide the consultation on this patient. <ELECTRONICALLY SIGNED> By: Jorge Acosta, PhD 12/09/17 1918 1713 27 Jorge Acosta, PhD /nt
--- NOTE | ~2017-12-04 | H ---
[facility] [place] [address] HISTORY AND PHYSICAL Name: JOHN SHIELDS Room #: 506-1 ADM IN M.R.#: [id number] Admission: 12/04/17 Attend Phys: Nathan Alonso MD Discharge: Date of : 56 Report #: [id number] THIS REPORT FOR: //name// CC: Nathan Alonso [facility] unknown DATE OF SERVICE: 12/04/2017 HISTORY AND PHYSICAL/POST ADMISSION PHYSICIAN EVALUATION HISTORY OF PRESENT ILLNESS: The patient is a 57-year-old -[place]aced[place] male who was on the acute inpatient rehabilitation [facility], post an acute left middle cerebral artery infarct with slurred speech, right-sided weakness, right hemianopsia. While on the acute rehab [facility] on 11/30/2017, he developed increased confusion, aphasia and worsening right-sided weakness. CT scan was obtained and showed interval enlargement with an evolution of the hypodense subacute infarct within the left posterior parietal-occipital lobes with a new hypodensity of infarct consistent with hemorrhagic transformation. He was transferred subsequently to [facility] for further monitoring. No intervention was required. Blood pressure was controlled. Right-sided weakness had since improved. He was stabilized and now readmitted to [facility] inpatient rehabilitation. He does report visual changes. Denied dizziness, headache, or numbness. PAST MEDICAL HISTORY, HABITS, SOCIAL HISTORY, ALLERGIES: As per Shima Gil's, nurse practitioner dictation. MEDICATIONS: Please see the full medication listing. This includes vitamins, herbals, and supplements. REVIEW OF SYSTEMS: No complaints of chest pain or shortness of breath, abdominal discomfort. PHYSICAL EXAMINATION: GENERAL: He is in no distress. VITAL SIGNS: As noted. Blood pressure 152/84, pulse 66, temperature 98.7, respirations 18. HEENT: He does have mild expressive aphasia with word finding difficulties. He has right visual field deficits and mild dysarthria. CHEST: Sounded clear to auscultation. CARDIOVASCULAR: Regular rate and rhythm. ABDOMEN: Bowel sounds positive. GENITOURINARY AND RECTAL: Deferred. EXTREMITIES: He does have some right proximal lower extremity weakness, a grade 3+, distally is more of a grade 4. Left lower extremity is more of a grade 4/5. Right upper extremity appeared somewhat weaker compared [place] [address] HISTORY AND PHYSICAL Name: JOHN SHIELDS ALYCIA Room #: [address] [place] [address] [place] ..#: [id number] Admission: 12/04/17 Attend Phys: Nathan Alonso MD Discharge: Date of : 56 Report #: [id number] no clonus at the ankles. He is min assist with sit to stand and is unsteady upon first standing. Mod assist for lower body dressing. ASSESSMENT: 1. 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 2. Dominant right-sided flaccid hemiparesis. 3. Right hemianopsia. 4. Dysarthria and dysphagia. 5. Cognitive deficits. 6. Insulin-dependent diabetes mellitus type 2 with hemoglobin A1c, which is elevated. 7. Hypertension. 8. Congestive heart failure. 9. Depression. PLAN: From a postadmission physician evaluation perspective, there are no relevant changes since the preadmission screening. Please see the above review of prior and current medical and functional conditions and comorbidities. Please see the patient's previous and current functional status. As far as risk of complications, the patient has multiple medical comorbidities as noted above. Initial plan of care involves the interdisciplinary acute inpatient rehabilitation program with the goal of maximizing the patient's functional independence, so that he can hopefully return back to his prior living situation. Measurable functional goals would be for the patient to become modified independent with transfers, mobility, ADLs, cognition, communication, so he can return back to the home setting. Prognosis is reasonably good with estimated length of stay probably at least 10 days to 2 weeks and likely longer with his significant deficits. Potential barriers would include his multiple medical comorbidities and decreased functional status. He does have some decreased insight into his deficits as well. <ELECTRONICALLY SIGNED> By: Nathan Alonso MD 12/10/17 1429 1103 1142 Nathan Alonso MD /nt
--- NOTE | ~2017-12-04 | PLAN ---
[facility] [place] [address] REHAB UNIT PLAN OF CARE Name: JOHN SHIELDS Room #: 506-1 ADM IN M.R.#: [id number] Admission: 12/04/17 Attend Phys: Nathan Alonso MD Discharge: Date of : 56 Report #: [id number] THIS REPORT FOR: //name// CC: Nathan Alonso [facility] unknown DATE OF SERVICE: 12/06/2017 PROGRESS NOTE/OVERALL PLAN OF CARE SUBJECTIVE: The patient is seen back today in followup. He is in no distress. Last recorded temperature 98.8, pulse 62, respirations 18, blood pressure is 130/67. No focal calf swelling. He has decreased insight into his deficits. He did not know that he had bled into his prior stroke. Bed mobility is standby assist with transfers min assist. Gait is mod assist 50 feet with a front-wheeled walker. Balance is an issue as well as safety. He has lower body dressing at a mod assist level. As far as speech, he has severe comprehensive deficits. He also has severe cognitive deficits and severe memory deficits. ASSESSMENT: 1. 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 2. Dominant right-sided flaccid hemiparesis. 3. Right hemianopsia. 4. Dysarthria and dysphagia. 5. Cognitive deficits. 6. Insulin-dependent diabetes mellitus type 2 with hemoglobin A1c. 7. Hypertension. 8. Congestive heart failure. 9. Depression. PLAN: The overall plan of care is based on the preadmission screen, post-admission physician evaluation and information garnered from therapy assessments. 1. Estimated length of stay is probably at least 10 days to 2 weeks and likely longer. 2. Medical prognosis is reasonably good. 3. Anticipated interventions includes the interdisciplinary acute inpatient rehabilitation program, PT, OT and speech, rehabilitation nursing assisting regarding medication management, skin care prophylaxis, bowel and bladder issues and nursing education. Case management is involved as well as the senior talent management consultant physicians and the rest of the interdisciplinary rehabilitation team. 4. Anticipated functional outcomes would be for the patient to become modified independent with transfers, mobility and ADLs, ideally independent at least at a walker level with improvement in cognition. 5. Discharge destination, he had been living alone. He does have an involved son and I just filled out some paperwork for the son to be able to pay the [facility] [address] [place] [address] REHAB UNIT PLAN OF CARE Name: JOHN SHIELDS ALYCIA Room #: 506-1 [facility] IN [facility].#: [id number] Admission: 12/04/17 Attend Phys: Nathan Alonso MD Discharge: Date of : 56 Report #: [id number] patient's bills, etc. We will need to see what further assistance he can have at home and try to work with him in the rehab to maximize his functional independence in the meantime. 6. Expected therapy by discipline includes PT, OT and speech 1 hour per day each 5 days a week throughout the duration of the acute inpatient rehabilitation stay. <ELECTRONICALLY SIGNED> By: Nathan Alonso MD 12/10/17 1429 0749 0810 Nathan Alonso MD /nt
--- NOTE | ~2017-12-04 | H ---
[facility] [place] [address] HISTORY AND PHYSICAL Name: JOHN SHIELDS Room #: 506-1 ADM IN M.R.#: [id number] Admission: 12/04/17 Attend Phys: Nathan Alonso MD Discharge: Date of : 56 Report #: [id number] THIS REPORT FOR: //name// CC: Nathan Alonso [facility] unknown DATE OF SERVICE: 12/04/2017 HISTORY OF PRESENT ILLNESS: This is a 57-year-old gentleman who was on the inpatient rehabilitation unit at [facility] after a left MCA infarct, and on 11/30/2017, developed increasing confusion, aphasia and right-sided weakness. A CT scan was obtained and showed interval enlargement and evolution of hypodense subacute infarct within the left posterior parietal occipital lobes with a new hypodensity of infarct consistent with hemorrhagic transformation. He was subsequently transferred to [facility] for further monitoring. No intervention was required. His blood pressure was controlled. His right-sided weakness has since improved. He stabilized and has been now readmitted back to [facility] for further physical, occupational and speech therapies. Today, the patient acknowledges difficulty with word finding and his speech. He denies pain at present. He denies dizziness, headache or numbness, tingling. He does report vision changes and blurred vision, sometimes with double vision. He does report some urinary hesitancy at times, but denies dysuria. No constipation. Good appetite. PAST MEDICAL HISTORY: CAD, CHF, chronic back pain, COPD, depression, diabetic neuropathy, type 2 diabetes, hypertension, hyperlipidemia, history of DKA, right ankle surgery, perirectal abscess I and D with anoscopy, pulmonary edema. HABITS: Quit smoking cigarettes over a year ago. Alcohol on social occasions, marijuana at times. SOCIAL HISTORY: He lives in a duplex with one entry stair. He lives alone. He does have some friends and family support. Premorbidly utilized a quad cane before his strokes. ALLERGIES: No known drug allergies. MEDICATIONS: Senokot-S 1 tablet daily, lisinopril 40 mg daily, Celexa 20 mg daily, Norvasc 2.5 mg daily, Lantus 10 units at bedtime, Lipitor 40 mg at bedtime, carvedilol 25 mg b.i.d., Humalog sliding scale a.c. and at bedtime, milk of magnesia p.r.n., glucose p.r.n., Colace 100 mg twice a day p.r.n. REVIEW OF SYSTEMS: Remainder of his 12-point review of systems is negative except as listed in HPI. PHYSICAL EXAMINATION: [facility] [address] [place] [address] HISTORY AND PHYSICAL Name: JOHN SHIELDS Room #: 506-1 ADM IN M.R.#: [id number] Admission: 12/04/17 Attend Phys: Nathan Alonso MD Discharge: Date of : 56 Report #: [id number] VITAL SIGNS: Blood pressure 152/84, pulse 66, temperature 98.7, respirations 18. He is 97% oxygen on room air. GENERAL: He is awake, alert. He is oriented to person, place and situation. He is forgetful and a poor historian. He has mild expressive aphasia, word finding difficulties. He does have mild dysarthria, right visual field deficits in his vision. LUNGS: Clear to auscultation bilaterally. No crackle, no wheeze. HEART: S1, S2. ABDOMEN: Bowel sounds are positive. Soft, nontender, nondistended. GENITOURINARY: Deferred. EXTREMITIES: No lower extremity edema. He does have impaired sensation in his feet bilaterally. He is able to lift both lower extremities antigravity 4 to 4+ grossly. Right upper extremity and lower extremity weaker compared to the left. Negative clonus. Negative Homans sign. SKIN: Warm, dry and intact. MUSCULOSKELETAL: Sit to stand is min assist, ambulating to the bathroom is min assist and 4-wheeled walker with shuffling type gait, poor obstacle avoidance skills, requires max cues for sequencing and problem solving along with extra time, min assist for grooming. He is mod assist for lower extremity dressing and requires steadying with his balance. LABORATORY DATA: On 12/05/2017, WBC is 5.7, hemoglobin 11.5, hematocrit 34.0, platelets 253. Sodium 133, potassium 4.2, BUN 16, creatinine 0.8, glucose 280, calcium 8.4. ASSESSMENT AND PLAN: 1. 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 2. Dominant right-sided flaccid hemiparesis. 3. Right hemianopsia. 4. Dysarthria and dysphagia. 5. Cognitive deficits. 6. Insulin-dependent type 2 diabetes with hemoglobin A1c of 11.6. 7. Hypertension. 8. Congestive heart failure. 9. Depression. PLAN: The patient has been admitted to inpatient rehab, physical, occupational and speech therapies with his goal to return back to his home setting. He will have hospitalist follow up for acute medical issues, and he will have neuropsychology testing done. He is on a carb-controlled diet with no straws. [address] [address] HISTORY AND PHYSICAL Name: JOHN SHIELDS Room #: 506-1 ADM IN M.R.#: [id number] Admission: 12/04/17 Attend Phys: Nathan Alonso MD Discharge: Date of : 56 Report #: [id number] He is on no aspirin or anticoagulant due to the hemorrhagic transformation of his stroke. He will have sequential compression devices while in bed. <ELECTRONICALLY SIGNED> By: OLIVER Salomon 12/13/17 1604 [id number] OLIVER Salomon /nt
[2017-12-04 14:00] VITALS: BP 150/83
[2017-12-04 20:15] VITALS: BP 138/82
[2017-12-05 04:18] LABS: CALCIUM 8.4 mg/dL (8.5-10.1); CREATININE 0.8 mg/dL (0.7-1.3); POTASSIUM 4.2 mmol/L (3.5-5.1)
[2017-12-05 05:16] LABS: HEMOGLOBIN 11.5 gm/dL (14.0-18.0); MCH 28.1 pg (26.0-34.0); MCHC 33.9 g/dL (28.0-37.0); MCV 82.7 fL (80.0-100.0); RBC 4.11 mil/uL (4.50-6.00); RDW 15.2 % (10.5-14.5); WBC 5.7 thou/uL (4.0-11.0)
[2017-12-05 07:35] VITALS: BP 152/84
[2017-12-05 20:18] VITALS: BP 130/67
[2017-12-06 07:15] VITALS: BP 156/87
[2017-12-06 20:05] VITALS: BP 135/73
[2017-12-07 07:10] VITALS: BP 138/76
[2017-12-07 19:45] VITALS: BP 139/72
[2017-12-08 07:10] VITALS: BP 156/98
[2017-12-08 20:25] VITALS: BP 138/74
[2017-12-09 05:36] LABS: CALCIUM 8.5 mg/dL (8.5-10.1); CREATININE 0.9 mg/dL (0.7-1.3); MAGNESIUM 1.5 mg/dL (1.8-2.4)
[2017-12-09 05:46] LABS: HEMATOCRIT 35.6 % (42.0-52.0); MCHC 33.9 g/dL (28.0-37.0); MCV 82.7 fL (80.0-100.0); RBC 4.3 mil/uL (4.50-6.00); RDW 15.2 % (10.5-14.5); WBC 5.7 thou/uL (4.0-11.0)
[2017-12-09 07:20] VITALS: BP 147/89
[2017-12-10 07:20] VITALS: BP 162/94
[2017-12-10 19:12] VITALS: BP 135/77
[2017-12-11 08:00] VITALS: BP 139/76
[2017-12-11 11:30] VITALS: BP 120/61
[2017-12-11 18:00] VITALS: BP 166/85
[2017-12-11 19:30] VITALS: BP 120/69
[2017-12-12 07:25] VITALS: BP 138/84
[2017-12-12 14:50] VITALS: BP 158/77
[2017-12-12 15:43] VITALS: BP 139/71
[2017-12-13 02:59] LABS: CALCIUM 8.8 mg/dL (8.5-10.1); CREATININE 0.9 mg/dL (0.7-1.3); MAGNESIUM 1.9 mg/dL (1.8-2.4); POTASSIUM 4.6 mmol/L (3.5-5.1)
[2017-12-13 03:38] LABS: HEMOGLOBIN 11.4 gm/dL (14.0-18.0); MCH 27.9 pg (26.0-34.0); MCHC 33.4 g/dL (28.0-37.0); MCV 83.7 fL (80.0-100.0); PLATELET COUNT 253 thou/uL (150-400); RBC 4.07 mil/uL (4.50-6.00); RDW 15.1 % (10.5-14.5); WBC 5.6 thou/uL (4.0-11.0)
[2017-12-13 07:39] LABS: ABSOLUTE NEUTROPHILS 2.7 thou/uL (1.4-8.2)
[2017-12-13 08:16] VITALS: BP 144/71
[2017-12-13 20:16] VITALS: BP 140/71
[2017-12-14 07:10] VITALS: BP 139/83
[2017-12-14 19:25] VITALS: BP 107/54
[2017-12-15 07:40] VITALS: BP 147/93
[2017-12-15 17:00] VITALS: BP 110/60
[2017-12-15 20:00] VITALS: BP 124/62
[2017-12-16 08:00] VITALS: BP 122/73
[2017-12-16] MEDS ORDERED: LANTUS100 UNIT/M SUBQ ×2 (09:06→12:06)
[2017-12-16] MEDS ORDERED: NORVASC2.5 MG PO (09:06)
[2017-12-16] MEDS ORDERED: ASPIRIN81 M2 PO (09:06)
[2017-12-16] MEDS ORDERED: COLACE100 MG PO (09:06)
== END 2017-12-16 14:15 | DRG 56 ==
PROVIDERS: Internal Medicine; Nurse Practitioner; Physical Medicine & Rehabilitation
DX: G81.01 Flaccid hemiplegia affecting right dominant side (principal); I63.512 Cerebral infarction due to unspecified occlusion or stenosis of left middle cerebral artery; I50.20 Unspecified systolic (congestive) heart failure; I62.9 Nontraumatic intracranial hemorrhage, unspecified; R47.01 Aphasia; I25.10 Atherosclerotic heart disease of native coronary artery without angina pectoris; G89.29 Other chronic pain; J44.9 Chronic obstructive pulmonary disease, unspecified; F32.9 Major depressive disorder, single episode, unspecified; E11.40 Type 2 diabetes mellitus with diabetic neuropathy, unspecified; M54.9 Dorsalgia, unspecified; I11.0 Hypertensive heart disease with heart failure; E78.5 Hyperlipidemia, unspecified; Z60.2 Problems related to living alone; H53.461 Homonymous bilateral field defects, right side; R47.1 Dysarthria and anarthria; R13.10 Dysphagia, unspecified; R41.89 Other symptoms and signs involving cognitive functions and awareness; X58.XXXA Exposure to other specified factors, initial encounter; E55.9 Vitamin D deficiency, unspecified; Z87.891 Personal history of nicotine dependence; Z79.899 Other long term (current) drug therapy; Z79.4 Long term (current) use of insulin; Y93.89 Activity, other specified; Y92.89 Other specified places as the place of occurrence of the external cause; Y99.8 Other external cause status; I25.2 Old myocardial infarction; Z95.1 Presence of aortocoronary bypass graft; Z89.441 Acquired absence of right ankle
CPT/HCPCS: 10112

== ENCOUNTER 2021-01-19 13:23 | Inpatient (IN) | payer OTHER ==
[~2021-01-19] VITALS: Ht 200.7 cm; Wt 109.1 kg
--- NOTE | ~2021-01-19 | EMS ---
[facility] [address] [place] [address] EMS Patient Care Report Name: JOHN SHIELDS Room #: PRE M.R.#: [id number] Admission: Attend Phys: Discharge: Date of : 56 Report #: [id number] THIS REPORT FOR: //name// Report Transmitted: 01/19/2021 13:48 EMS Care Summary [place], [place]/[facility] Incident [id number] @ 01/19/2021 12:43 Incident Location [address] [facility] Patient JOHN SHIELDS Male, 60 Years 1960 Patient Address [address] [place] [address] Patient History Congestive Heart Failure (CHF),Diabetes, Patient Allergies No known allergies, Patient Medications ASA, Insulin, Chief Complaint syncope Disposition Transported No Lights/[place] Dispatch Reason Diabetic Problem Transported To [facility] Narrative il staff stated pt had a syncopal episode in wheelchair and vomited on himself. pt was wheeled to ems. pt found sitting upright in wheelchair and alert. pt a&ox4 gcs 15 and did not present in apparent distress. pt attempted to stand up [facility] [address] [place] [address] EMS Patient Care Report Name: JOHN SHIELDS Room #: [facility] Yusef.Nima.#: [id number] Admission: Attend Phys: Discharge: Date of : 56 Report #: [id number] multiple times stating "i gotta shit". pt was assisted back into wheelchair. pt has no complaints. pt stated he feels fine. pt has vomit on his lap. il staff was hysterical and worked up about pt. il staff requested for pt to be transported to [facility]. pt was transferred onto ems cot and was secured in a semi fowlers position without incident. pt was loaded into ambulance. pt is hypotensive. a 12-lead ekg was obtained revealing nsr and was unremarkable. 18ga sl iv was obtained on pts R ac. pt was transported non emergent. pt was administered 250ml ns iv. bolus volume was restricted due to chf hx. after 250ml ns pt remained hypotensive. pt was administered an additional 250ml ns via iv. transport was uneventful and pt rested on ems cot. pts bp increased to 96 sys upon arrival of [facility]. pt care was transferred to appropriate staff and ems goes back in service. Initial Vitals @13:02P: 93,SpO2: 95,DC Suspected: false @12:57P: 90,BP: 81/61,CO: 1,SpO2: 97, @13:10P: 91,BP: 86/57,CO: 3,SpO2: 96, @12:57P: 95,BP: 86/62,CO: 2, @13:01P: 131,CO: 4,SpO2: 97,DC Suspected: false @12:58P: 92,R: 20,BP: 86/62,Pain: 0/10,GCS: 15,Glucose: 273,SpO2: 97,Revised Trauma: 11, @13:15P: 88,R: 20,BP: 96/65,GCS: 15,CO: 2,SpO2: 99,Revised Trauma: 12, Assessments @12:51MENTAL:No Abnormalities,SKIN:No Abnormalities,HEENT:Head/Face: No Abnormalities,Eyes: No Abnormalities,Neck/Airway: No Abnormalities,LUNG SOUNDS:General: No Abnormalities,Left Upper: No Abnormalities,Right Upper: No Abnormalities,Left Lower: No Abnormalities,Right Lower: No Abnormalities,ABDOMEN:General: No Abnormalities,Left Upper: No Abnormalities,Right Upper: No Abnormalities,Left Lower: No Abnormalities,Right Lower: No Abnormalities,PELVIS//GI:No Abnormalities,EXTREMITIES:Left Arm: No Abnormalities,Right Arm: No Abnormalities,Left Leg: No Abnormalities,Right Leg: No Abnormalities,PULSE:NEURO:No Abnormalities,@12:59MENTAL:No Abnormalities,SKIN:No Abnormalities,HEENT:Head/Face: No Abnormalities,Eyes: No Abnormalities,Neck/Airway: No Abnormalities,LUNG SOUNDS:General: No Abnormalities,Left Upper: No Abnormalities,Right Upper: No Abnormalities,Left Lower: No Abnormalities,Right Lower: No Abnormalities,ABDOMEN:General: No Abnormalities,Left Upper: No Abnormalities,Right Upper: No Abnormalities,Left Lower: No Abnormalities,Right Lower: No Abnormalities,PELVIS//GI:No Abnormalities,EXTREMITIES:Left Arm: No Abnormalities,Right Arm: No Abnormalities,Left Leg: No Abnormalities,Right Leg: No Abnormalities,PULSE:NEURO:No Abnormalities, Impression Syncope / Fainting [facility] [address] [place] [address] EMS Patient Care Report Name: JOHN SHIELDS Room #: PRE M.R.#: [id number] Admission: Attend Phys: Discharge: Date of : 56 Report #: [id number] Procedures @12:51ALS AssessmentResponse: UnchangedSucceeded@13:04Saline Lock 250cc (18 ga) Site: Antecubital-RightResponse: ImprovedSucceeded@13:11Normal Saline (.9% NaCl) 250cc (18 ga) Site: Antecubital-RightResponse: ImprovedSucceeded@13:0212-Lead ECGResponse: UnchangedSucceeded Timeline 12:41,Call Received 12:41,Dispatch Notified 12:43,Dispatched 12:44,En Route 12:49,On Scene 12:51,At Patient 12:51,ALS Assessment,Response: UnchangedSucceeded, 12:57,BP: 81/61 M,PULSE: 90,RR: R,SPO2: 97 Ox,ETCO2: ,BG: ,PAIN: ,GCS: , 12:57,BP: 86/62 M,PULSE: 95,RR: R,SPO2: Ox,ETCO2: ,BG: ,PAIN: ,GCS: , 12:58,BP: 86/62 M,PULSE: 92,RR: 20 R,SPO2: 97 Ox,ETCO2: ,B,PAIN: 0,GCS: 15, 13:01,BP: / M,PULSE: 131,RR: R,SPO2: 97 Ox,ETCO2: ,BG: ,PAIN: ,GCS: , 13:02,12-Lead ECG,Response: UnchangedSucceeded, 13:02,BP: / M,PULSE: 93,RR: R,SPO2: 95 Ox,ETCO2: ,BG: ,PAIN: ,GCS: , 13:04,Saline Lock 250cc 18 ga Site: Antecubital-Right,Response: ImprovedSucceeded, 13:07,Depart Scene 13:10,BP: 86/57 M,PULSE: 91,RR: R,SPO2: 96 Ox,ETCO2: ,BG: ,PAIN: ,GCS: , 13:11,Normal Saline (.9% NaCl) 250cc 18 ga Site: Antecubital-Right,Response: ImprovedSucceeded, 13:15,BP: 96/65 M,PULSE: 88,RR: 20 R,SPO2: 99 Ox,ETCO2: ,BG: ,PAIN: ,GCS: 15, 13:15,At Destination 13:31,Call Closed Disclaimer v1.1 Copyright 2020 [employer] This EMS Care Summary contains data elements from the applicable legal record (which may be displayed differently). It is designed to provide pertinent information for the following purposes: continuity of care, clinical quality, and state data reporting. The complete legal record is available to ED staff and administrators of the receiving hospital in [employer] Patient Tracker. All data is provided "as is."
[2021-01-19 13:23] VITALS: BP 93/56
[~2021-01-19 13:23] MED LIST changes: +ASPIRIN81 M2 PO; +NORVASC2.5 MG PO
[2021-01-19 13:43] LABS: ABSOLUTE NEUTROPHILS 3.1 thou/uL (1.4-8.2); BASOPHILS 1.4 % (0.0-2.0); EOSINOPHILS 6.2 % (0.0-3.0); HEMATOCRIT 39.7 % (42.0-52.0); HEMOGLOBIN 12.8 gm/dL (14.0-18.0); LYMPHOCYTES 19.5 % (24.0-44.0); MCH 27.3 pg (26.0-34.0); MCHC 32.2 g/dL (28.0-37.0); MCV 84.6 fL (80.0-100.0); PLATELET COUNT 263 thou/uL (150-400); POLYS 60.9 % (36.0-66.0); RBC 4.69 mil/uL (4.50-6.00); RDW 17.2 % (10.5-14.5)
[2021-01-19 13:48] LABS: CALCIUM 8.4 mg/dL (8.5-10.1); CREATININE 3.5 mg/dL (0.7-1.3); POTASSIUM 3.6 mmol/L (3.5-5.1)
[2021-01-19 13:55] LABS: ALBUMIN 3.1 g/dL (3.4-5.0); TOTAL BILIRUBIN 1.2 mg/dL (0.2-1.0)
[2021-01-19 14:39] LABS: URINE BILIRUBIN NEGATIVE (Negative); URINE BLOOD NEGATIVE (Negative); URINE CLARITY CLEAR; URINE COLOR YELLOW; URINE GLUCOSE-RANDOM* 3+ (Negative); URINE KETONES NEGATIVE (Negative); URINE LEUKOCYTES-REFLEX NEGATIVE (Negative); URINE NITRITE-REFLEX NEGATIVE (Negative); URINE PROTEIN (DIPSTICK) NEGATIVE (Negative); URINE UROBILINOGEN 0.2 E.U./dl (0.2-1.0)
[2021-01-20 03:00] LABS: HEMATOCRIT 38.9 % (42.0-52.0); HEMOGLOBIN 12.5 gm/dL (14.0-18.0); MCHC 32.1 g/dL (28.0-37.0); MCV 84.3 fL (80.0-100.0); RBC 4.61 mil/uL (4.50-6.00); RDW 17.4 % (10.5-14.5); WBC 16.3 thou/uL (4.0-11.0)
[2021-01-20 03:19] LABS: ANION GAP 12 mmol/L (7-16); BUN 60 mg/dL (7-18); CALCIUM 8.6 mg/dL (8.5-10.1); CHLORIDE 97 mmol/L (98-107); CO2 29 mmol/L (21-32); CREATININE 3.3 mg/dL (0.7-1.3); GLUCOSE 119 mg/dL (74-106); MAGNESIUM 1.3 mg/dL (1.8-2.4); POTASSIUM 3.5 mmol/L (3.5-5.1); SODIUM 138 mmol/L (136-145)
--- NOTE | 2021-01-20 07:26 | EKG ---
[place] [address] [employer] [place] [address] ELECTROCARDIOGRAM REPORT Name: JOHN SHIELDS Room #: 170-9 ADM IN M.R.#: [id number] Admission: 01/19/21 Attend Phys: [place] Gonzales MD Discharge: Date of : 56 Report #: [id number] [facility] ED Test Date: 2021-01-19 Test Time: 13:29:12 Pat Name: JOHN SHIELDS Department: Room: 170 Gender: M Kitchen Helper: CARMINA : 1960 Requested By: Ninfa Krause Order Number: [id number] MD: Chapincito Riley Measurements Intervals [place] Rate: 87 P: 71 MT: 174 QRS: 23 QRSD: 108 T: 107 QT: 403 QTc: 485 Interpretive Statements Sinus rhythm Probable left atrial enlargement Lateral leads are also involved Baseline wander in lead(s) V5 Compared to ECG 11/22/2017 04:00:47 T-wave abnormality no longer present Electronically Signed On 01-20-2021 7:25:57 CDT by Chapincito Riley [email or web address] <ELECTRONICALLY SIGNED> By: Chapincito Riley MD, [facility] 01/20/21 0725 1329 1329 Chapincito Riley MD, [facility] /EPI
[2021-01-20 08:55] LABS: CHOLESTEROL 102 mg/dL (<200); HDL CHOLESTEROL 35 mg/dL (>40); LDL CHOLESTEROL 47 mg/dL (<100); TC:HDL 2.9 Ratio (Not establshd); TRIGLYCERIDE 104 mg/dL (<150); VLDL 21 mg/dL (<40)
[2021-01-20 12:40] VITALS: BP 134/94
[2021-01-20 13:00] VITALS: BP 135/86
[2021-01-20 13:29] VITALS: BP 133/76
--- NOTE | 2021-01-20 14:16 | NUR ---
PT ARRIVED FROM ER APPROX 1330. PT WALKED TO BED FROM WHEELCHAIR WITHOUT INCIDENT. VSS. DENIES PAIN. O2 SATS WNL RA. ADMISSION COMPLETE. TELE STRIPPRINTED AND DOCUMENTED. WILL IMPLEMENT ORDERS. DENIES NEEDS CURRENTLY, CONT POC.
[2021-01-20] MEDS ORDERED: ALLOPURINOL 10100 M3 PO (14:31)
[2021-01-20] MEDS ORDERED: IMDUR 30 MG TAB30 M1 PO (14:32)
[2021-01-20] MEDS ORDERED: COZAAR 25 MG TA25 M1 PO (14:33)
[2021-01-20] MEDS ORDERED: LANTUS SUBQ (14:33)
[2021-01-20] MEDS ORDERED: METFORMIN HCL500 M3 PO ×2 (14:33→14:34)
[2021-01-20] MEDS ORDERED: SPIRONOLACTONE25 M1 PO (14:34)
[2021-01-20] MEDS ORDERED: TORSEMIDE20 MG PO ×2 (14:35)
[2021-01-20] MEDS ORDERED: TAMSULOSIN HCL0.4 MG PO (14:35)
[2021-01-20 15:32] VITALS: BP 139/82
[2021-01-20 20:24] VITALS: BP 120/72
[2021-01-21 04:19] VITALS: BP 122/68
--- NOTE | 2021-01-21 05:53 | NUR ---
PT MAKING PROGRESS TOWARDS GOALS. ON ROOM AIR THROUGHOUT THE NIGHT. HAS DENIED ANY SOA WHILE AT REST. LUNGS CLEAR THROUGHOUT. OCCASIONAL NON-PROD COUGH NOTED.
[2021-01-21 07:57] VITALS: BP 148/98
[2021-01-21 11:11] LABS: EOSINOPHILS 4.8 % (0.0-3.0); HEMATOCRIT 37.8 % (42.0-52.0); HEMOGLOBIN 11.8 gm/dL (14.0-18.0); LYMPHOCYTES 13.5 % (24.0-44.0); MCH 26.9 pg (26.0-34.0); MCHC 31.3 g/dL (28.0-37.0); MCV 85.8 fL (80.0-100.0); MONOCYTES 9.8 % (1.0-8.0); PLATELET COUNT 213 thou/uL (150-400); POLYS 70.9 % (36.0-66.0); RDW 17.4 % (10.5-14.5); WBC 7.1 thou/uL (4.0-11.0)
[2021-01-21 11:20] LABS: CALCIUM 8.7 mg/dL (8.5-10.1)
[2021-01-21 12:10] VITALS: BP 118/71
--- NOTE | 2021-01-21 13:50 | NUR ---
PT REFUSED OT EVAL OR ANY TREATMENT THIS AFTENOON.
--- NOTE | 2021-01-21 13:51 | NUR ---
CLARIFICATION ON ABOVE OT NOTE. PT REFUSED OT AND TX FOR ENTIRE HOSPITAL STAY UNLESS A STATUS CHANGE
[2021-01-21 15:22] VITALS: BP 128/77
--- NOTE | 2021-01-21 17:15 | NUR ---
ASSESMSENT CHARTED - MEDS PER MAR - NO CO'S OF PAIN OR NASUEA. AMBUALTED WITH PHYS THERAPY AND UP TO THE CHAIR. ECHO COMPLETED. ACCUCHECKS CHARTED - COVERED PER SSI. NORIS DIET AND FLUIDS. NO CO'S AT THE PRESENT TIME.
[2021-01-21 19:16] VITALS: BP 111/57
[2021-01-22 04:21] VITALS: BP 108/57
[2021-01-22 05:14] LABS: HEMATOCRIT 35.2 % (42.0-52.0); HEMOGLOBIN 11.3 gm/dL (14.0-18.0); MCH 27.1 pg (26.0-34.0); MCHC 32.1 g/dL (28.0-37.0); MCV 84.5 fL (80.0-100.0); RBC 4.17 mil/uL (4.50-6.00); RDW 17.7 % (10.5-14.5); WBC 5.9 thou/uL (4.0-11.0)
[2021-01-22 05:42] LABS: CALCIUM 8.7 mg/dL (8.5-10.1); CREATININE 2.8 mg/dL (0.7-1.3); MAGNESIUM 1.9 mg/dL (1.8-2.4); POTASSIUM 3.8 mmol/L (3.5-5.1)
[2021-01-22 08:00] VITALS: BP 135/78
[2021-01-22 12:29] VITALS: BP 105/65
--- NOTE | 2021-01-22 12:59 | EKG ---
[place] [address] [facility] [place] [address] ELECTROCARDIOGRAM REPORT Name: JOHN SHIELDS Room #: 206-P ADM IN M.R.#: [id number] Admission: 01/19/21 Attend Phys: [place] Gonzales MD Discharge: Date of : 56 Report #: [id number] [facility] Test Date: 2021-01-22 Test Time: 08:14:50 Pat Name: JOHN SHIELDS Department: Room: 206 P Gender: M Liturgical Music Director: FATMATA : 1960 Requested By: Vic Parmar Order Number: [id number] MD: Vic Parmar Measurements Intervals [place] Rate: 87 P: 60 MI: 173 QRS: -21 QRSD: 108 T: 103 QT: 392 QTc: 472 Interpretive Statements Sinus rhythm Ventricular premature complex Probable inferior infarct, old Anterior infarct, old Compared to ECG 01/19/2021 13:29:12 Ventricular premature complex(es) now present Electronically Signed On 01-22-2021 12:59:29 CDT by Vic Parmar [email or web address] <ELECTRONICALLY SIGNED> By: Vic Parmar MD, [facility] 01/22/21 1259 3 3 Vic Parmar MD, [facility] /EPI
[2021-01-22 16:00] VITALS: BP 128/70
--- NOTE | 2021-01-22 18:30 | NUR ---
ASSESSMENT CHARTED - MEDS PER TERESITA - NORIS DIET AND FLUIDS. NO CO'S OF PAIN OR NAUSEA. PT CALLS FOR DOUBLE PORTIONS OF MEAT ON HIS TRAYS. ACCUCHECKS CHARTED - REMAIN HIGH WITH MOD SSI CHAGED TO HIGH DOES SSI TODAY AND LISPRO DOSE INCREASED AT HS. PT UP TO THE CHAIR FOR THE AFTERNOON - TRANSFERED WELL WITH MIN/STBY ASSIST. PT WITH NO CO'S AT THE PRESENT TIME.
[2021-01-22 19:58] VITALS: BP 146/94
[2021-01-23 04:38] VITALS: BP 133/73
[2021-01-23 07:35] VITALS: BP 150/96
[2021-01-23 11:25] VITALS: BP 103/67
[2021-01-23] MEDS ORDERED: ACETAMINOPHEN325 M1 PO (13:52)
[2021-01-23] MEDS ORDERED: LEVOFLOXACIN500 MG PO (13:52)
[2021-01-23] MEDS ORDERED: CARVEDILOL3.125 MG PO (13:52)
--- NOTE | 2021-01-23 15:17 | NUR ---
met with patient who admits from [facility]. Patient resides at [facility]. He reports ambulates independently. Patient fell and subsequently admitted. Sp with Mac at [facility]. Faxed clinical info and dc orders. Arranged van for 1629. Chart copied. Rn has number for report. Sp with patient who is in agreement with dc. Assisted with calling son Aakash as patient does not have his cell phone. Patient plans to alert to Aakash of discharge today. no further needs.
[2021-01-23 15:55] VITALS: BP 133/68
== END 2021-01-23 16:17 | DRG 871 ==
LOC: ER 13:23 → EROBS 15:19 → 2N 15:19 → EROBS 01-20 10:03 → 2N 01-20 13:00
PROVIDERS: Emergency Medicine; Internal Medicine; Nurse Practitioner Family; ADMIT Internal Medicine; ATTEND Internal Medicine
DX: A41.9 Sepsis, unspecified organism (principal); J18.9 Pneumonia, unspecified organism; J69.0 Pneumonitis due to inhalation of food and vomit; N17.9 Acute kidney failure, unspecified; I50.22 Chronic systolic (congestive) heart failure; G93.49 Other encephalopathy; J44.0 Chronic obstructive pulmonary disease with (acute) lower respiratory infection; I25.10 Atherosclerotic heart disease of native coronary artery without angina pectoris; G89.29 Other chronic pain; F32.9 Major depressive disorder, single episode, unspecified; E11.40 Type 2 diabetes mellitus with diabetic neuropathy, unspecified; M54.5 Low back pain; R53.81 Other malaise; I11.0 Hypertensive heart disease with heart failure; I25.5 Ischemic cardiomyopathy; Z20.822 Contact with and (suspected) exposure to COVID-19; T50.915A Adverse effect of multiple unspecified drugs, medicaments and biological substances, initial encounter; Y92.89 Other specified places as the place of occurrence of the external cause; Z79.4 Long term (current) use of insulin; Z95.1 Presence of aortocoronary bypass graft; Z87.891 Personal history of nicotine dependence; Z79.82 Long term (current) use of aspirin; Z79.899 Other long term (current) drug therapy; Z86.73 Personal history of transient ischemic attack (TIA), and cerebral infarction without residual deficits
CPT/HCPCS: 10081